=== PATIENT | female | born 1935 | race Caucasian/White ===

== ENCOUNTER 2017-03-10 13:51 | Inpatient (IN) ==
[2017-03-10] MEDS ORDERED: *HR* OxyCODONE Immed Rel 5 MG TABLET PO PRN (14:44)
[2017-03-10] MEDS: Gabapentin 100 MG CAPSULE PO SCH ×2 (15:32→20:16)
[2017-03-11 06:32] LABS: Basophils % 0.5 %; Eosinophils # 0.2 K/mcL (0.0-0.6); Eosinophils % 4.1 %; Hematocrit 27.4 % (35.3-44.9); Hemoglobin 8.8 g/dL (11.5-15.4); Immature Granulocytes % 0.9 % (0-4); Lymphocytes # 1.2 K/mcL (0.6-4.6); Mean Corpuscular HGB Conc 32.1 g/dL (31.6-35.5); Mean Corpuscular Hemoglobin 32.1 pg (28.0-33.3); Mean Platelet Volume 10.3 fL (9.4-12.4); Monocytes # 0.4 K/mcL (0.0-1.3); Monocytes % 7.3 %; Neutrophils # 3.7 K/mcL (1.6-8.9); Platelet Count 205 K/mcL (140-400); Red Blood Count 2.74 M/mcL (3.82-4.97); Red Cell Distribution Width 14.7 % (11.5-14.5); Segmented Neutrophils % 65.2 %
[2017-03-11 06:38] LABS: Activated Partial Thrombo Time 33.3 Seconds (26.0-36.0)
[2017-03-11] MEDS: *HR* Enoxaparin 30 MG/0.3 ML SYRINGE SQ SCH (06:40)
[2017-03-11 07:20] LABS: Prothrombin Time 11.2 Seconds (9.4-12.1)
[2017-03-11] MEDS: *HR* Digoxin 0.125 MG TABLET PO SCH (08:54)
[2017-03-11] MEDS: Metoprolol XL (24 HR) Succ 50 MG TAB.ER.24H PO SCH (08:54)
[2017-03-11] MEDS: Aspirin Enteric Coated 81 MG Tablet PO SCH (08:54)
[2017-03-11] MEDS: Isosorbide MONOnitrate (24 HR) 30 MG TAB.ER.24H PO SCH (08:54)
[2017-03-11] MEDS: Cholecalciferol (D-3) 1,000 UNIT TABLET PO SCH (08:54)
[2017-03-11] MEDS: Bumetanide 1 MG TABLET PO SCH (08:55)
[2017-03-11] MEDS: Gabapentin 100 MG CAPSULE PO SCH ×3 (08:55→21:36)
[2017-03-11] MEDS ORDERED: (Cranberry Conc/C/Bacill Coag [Cranberry Tablet]) PO SCH (09:00)
--- NOTE | 2017-03-11 10:13 | Internal Med Progress Note ---
Date of Encounter: 03/11/17 Time of Encounter: 10:05 - Assessment and plan (1) Fracture of left pelvis Current Visit: No Status: Acute Assessment and plan: March 11. We will discontinue Duragesic patch and continue oral medication when necessary. Continue PT and OT interventions. Qualifiers: Encounter type: initial encounter Pelvic bone location: pubis Fracture type: closed Fracture alignment: displaced Qualified Code(s): S32.502A - Unspecified fracture of left pubis, initial encounter for closed fracture (2) Anemia Current Visit: No Status: Chronic Assessment and plan: March 11. Probably due to chronic kidney disease. Will monitor CBC periodically. Anemia testing July and February 2017 showed no factor deficiency. Qualifiers: Anemia type: unspecified type Qualified Code(s): D64.9 - Anemia, unspecified (3) CKD (chronic kidney disease) stage 4, GFR 15-29 ml/min Current Visit: No Status: Chronic Assessment and plan: March 11. Will monitor renal indices periodically. (4) DM type 2 (diabetes mellitus, type 2) Current Visit: No Status: Chronic Assessment and plan: March 11. Hemoglobin A1c was 5.6% on 01/22/2017. Remain off oral medication. Qualifiers: Diabetes mellitus complication status: with kidney complications Diabetes mellitus complication detail: with chronic kidney disease Diabetes mellitus long term care administrator insulin use: without half-way use Chronic kidney disease stage: stage 4 (severe) Qualified Code(s): E11.22 - Type 2 diabetes mellitus with diabetic chronic kidney disease; N18.4 - Chronic kidney disease, stage 4 (severe ) (5) Hypothyroidism Current Visit: No Status: Chronic Assessment and plan: March 11. TSH was normal at 0.886 on 02/11/2017. Continue present dose Synthroid Qualifiers: Hypothyroidism type: unspecified Qualified Code(s): E03.9 - Hypothyroidism , unspecified - Subjective Interval history: March 11. She was in acute care March 03 - March 10 after sustaining a fall at home approximately 6 days earlier resulting in nondisplaced left inferior pubic ramus fracture. She progressed well in therapy and was approved for swing bed stay on March 10 to continue rehabilitation therapy prior to returning to independent living at home. Oral diabetic medication was discontinued and blood sugars were monitored and satisfactory. She complains of nausea today but has no new complaints otherwise. - Constitutional Vitals: Temp Pulse Resp BP Pulse Ox 98.6 F 60 16 164/72 93 03/11/17 07:08 03/11/17 07:08 03/11/17 07:08 03/11/17 07:08 03/11/17 07:08 Exam: She is resting comfortably in bed and appears in no acute distress. Her affect is bright and cheerful. Her extremities show 1+ pitting edema as well as some woody edema. She has healing ulcerative areas on her legs as before. I reviewed her medications and lab results. Internal Medicine: Result - Labs CBC & Chem 7: 03/11/17 06:10 03/11/17 06:10 Labs: Short CBC 03/11/17 Range/Units 06:10 WBC 5.6 (4.3-11.1) K/mcL Hgb 8.8 L (11.5-15.4) g/dL Hct 27.4 L (35.3-44.9) % Plt Count 205 (140-400) K/mcL Neutrophils # 3.7 (1.6-8.9) K/mcL BMP 03/11/17 06:10 Creatinine 2.31 H - ABG Interpretation ABG results: PT/INR, D-dimer PT 11.2 Seconds (9.4-12.1) 03/11/17 06:10 Consult Discharge Plan - Plan Referrals: Macy Reed MD [Primary Care Provider] - 1 week
[2017-03-11] MEDS: Ondansetron ODT 4 MG TAB.RAPDIS SL PRN (11:12)
[2017-03-11] MEDS ORDERED: Simethicone 80 MG TAB.CHEW PO PRN (18:53)
[2017-03-11] MEDS ORDERED: Simethicone 80 MG TAB.CHEW PO SCH (21:00)
[2017-03-12] MEDS: *HR* Enoxaparin 30 MG/0.3 ML SYRINGE SQ SCH (06:04)
[2017-03-12] MEDS: Aspirin Enteric Coated 81 MG Tablet PO SCH (08:28)
[2017-03-12] MEDS: Bumetanide 1 MG TABLET PO SCH (08:28)
[2017-03-12] MEDS: Gabapentin 100 MG CAPSULE PO SCH ×3 (08:29→20:58)
[2017-03-12] MEDS: Isosorbide MONOnitrate (24 HR) 30 MG TAB.ER.24H PO SCH (08:29)
[2017-03-12] MEDS: Cholecalciferol (D-3) 1,000 UNIT TABLET PO SCH (08:30)
[2017-03-12] MEDS: Metoprolol XL (24 HR) Succ 50 MG TAB.ER.24H PO SCH ×2 (08:30→09:45)
[2017-03-12] MEDS: MOM Conc 10 ML UD.LIQ PO SCH (11:26)
[2017-03-13] MEDS: *HR* Enoxaparin 30 MG/0.3 ML SYRINGE SQ SCH (07:31)
[2017-03-13] MEDS ORDERED: *HR* FentaNYL PATCH 12 MCG PATCH TD SCH (09:00)
[2017-03-13] MEDS: Isosorbide MONOnitrate (24 HR) 30 MG TAB.ER.24H PO SCH (09:27)
[2017-03-13] MEDS: Cholecalciferol (D-3) 1,000 UNIT TABLET PO SCH (09:27)
[2017-03-13] MEDS: Metoprolol XL (24 HR) Succ 50 MG TAB.ER.24H PO SCH (09:27)
[2017-03-13] MEDS: Gabapentin 100 MG CAPSULE PO SCH ×3 (09:27→20:52)
[2017-03-13] MEDS: Aspirin Enteric Coated 81 MG Tablet PO SCH (09:28)
[2017-03-13] MEDS: *HR* Digoxin 0.125 MG TABLET PO SCH (09:28)
[2017-03-13] MEDS: Bumetanide 1 MG TABLET PO SCH (09:28)
[2017-03-14] MEDS: *HR* Enoxaparin 30 MG/0.3 ML SYRINGE SQ SCH (06:30)
[2017-03-14] MEDS: Bumetanide 1 MG TABLET PO SCH (10:20)
[2017-03-14] MEDS: MOM Conc 10 ML UD.LIQ PO SCH (10:20)
[2017-03-14] MEDS: Gabapentin 100 MG CAPSULE PO SCH ×3 (10:21→21:14)
[2017-03-14] MEDS: Aspirin Enteric Coated 81 MG Tablet PO SCH (10:21)
[2017-03-14] MEDS: Isosorbide MONOnitrate (24 HR) 30 MG TAB.ER.24H PO SCH (10:21)
[2017-03-14] MEDS: Metoprolol XL (24 HR) Succ 50 MG TAB.ER.24H PO SCH (10:22)
[2017-03-14] MEDS: Cholecalciferol (D-3) 1,000 UNIT TABLET PO SCH (10:22)
--- NOTE | 2017-03-14 10:39 | Internal Med Progress Note ---
Date of Encounter: 03/14/17 Time of Encounter: 10:30 - Assessment and plan (1) Fracture of left pelvis Current Visit: No Status: Acute Assessment and plan: March 11. We will discontinue Duragesic patch and continue oral medication when necessary. Continue PT and OT interventions. March 14. Remain off Duragesic patch. Continue therapy interventions. Anticipate discharge home March 19. Qualifiers: Encounter type: initial encounter Pelvic bone location: pubis Fracture type: closed Fracture alignment: displaced Qualified Code(s): S32.502A - Unspecified fracture of left pubis, initial encounter for closed fracture (2) Anemia Current Visit: No Status: Chronic Assessment and plan: March 11. Probably due to chronic kidney disease. Will monitor CBC periodically. Anemia testing July and February 2017 showed no factor deficiency. Qualifiers: Anemia type: unspecified type Qualified Code(s): D64.9 - Anemia, unspecified (3) CKD (chronic kidney disease) stage 4, GFR 15-29 ml/min Current Visit: No Status: Chronic Assessment and plan: March 11. Will monitor renal indices periodically. (4) DM type 2 (diabetes mellitus, type 2) Current Visit: No Status: Chronic Assessment and plan: March 11. Hemoglobin A1c was 5.6% on 01/22/2017. Remain off oral medication. Qualifiers: Diabetes mellitus complication status: with kidney complications Diabetes mellitus complication detail: with chronic kidney disease Diabetes mellitus group home insulin use: without group home use Chronic kidney disease stage: stage 4 (severe) Qualified Code(s): E11.22 - Type 2 diabetes mellitus with diabetic chronic kidney disease; N18.4 - Chronic kidney disease, stage 4 (severe ) (5) Hypothyroidism Current Visit: No Status: Chronic Assessment and plan: March 11. TSH was normal at 0.886 on 02/11/2017. Continue present dose Synthroid Qualifiers: Hypothyroidism type: unspecified Qualified Code(s): E03.9 - Hypothyroidism , unspecified - Subjective Interval history: March 11. She was in acute care March 03 - March 10 after sustaining a fall at home approximately 6 days earlier resulting in nondisplaced left inferior pubic ramus fracture. She progressed well in therapy and was approved for swing bed stay on March 10 to continue rehabilitation therapy prior to returning to independent living at home. Oral diabetic medication was discontinued and blood sugars were monitored and satisfactory. She complains of nausea today but has no new complaints otherwise. March 14. She has no new complaints and feels well. Her pain has lessened. - Constitutional Vitals: Temp Pulse Resp BP Pulse Ox 97.4 F L 56 18 140/88 92 03/14/17 07:27 03/14/17 07:27 03/14/17 07:27 03/14/17 07:27 03/14/17 07:27 Exam: She is resting comfortably in bed and appears in no acute distress. Her affect is bright and cheerful. I reviewed her medications and lab results. Internal Medicine: Result - Labs CBC & Chem 7: 03/11/17 06:10 03/11/17 06:10 - ABG Interpretation ABG results: PT/INR, D-dimer PT 11.2 Seconds (9.4-12.1) 03/11/17 06:10 Consult Discharge Plan - Plan Referrals: Macy Reed MD [Primary Care Provider] - 1 week
[2017-03-15] MEDS: *HR* Enoxaparin 30 MG/0.3 ML SYRINGE SQ SCH (05:36)
[2017-03-15] MEDS: Bumetanide 1 MG TABLET PO SCH (10:11)
[2017-03-15] MEDS: Cholecalciferol (D-3) 1,000 UNIT TABLET PO SCH (10:12)
[2017-03-15] MEDS: Gabapentin 100 MG CAPSULE PO SCH ×3 (10:12→20:06)
[2017-03-15] MEDS: *HR* Digoxin 0.125 MG TABLET PO SCH (10:12)
[2017-03-15] MEDS: Aspirin Enteric Coated 81 MG Tablet PO SCH (10:12)
[2017-03-15] MEDS: Isosorbide MONOnitrate (24 HR) 30 MG TAB.ER.24H PO SCH (10:12)
[2017-03-15] MEDS: Metoprolol XL (24 HR) Succ 50 MG TAB.ER.24H PO SCH (10:12)
[2017-03-16] MEDS: *HR* Enoxaparin 30 MG/0.3 ML SYRINGE SQ SCH (06:34)
[2017-03-16] MEDS: Bumetanide 1 MG TABLET PO SCH (09:21)
[2017-03-16] MEDS: Aspirin Enteric Coated 81 MG Tablet PO SCH (09:21)
[2017-03-16] MEDS: Isosorbide MONOnitrate (24 HR) 30 MG TAB.ER.24H PO SCH (09:22)
[2017-03-16] MEDS: Metoprolol XL (24 HR) Succ 50 MG TAB.ER.24H PO SCH (09:22)
[2017-03-16] MEDS: Gabapentin 100 MG CAPSULE PO SCH ×3 (09:22→21:32)
[2017-03-16] MEDS: MOM Conc 10 ML UD.LIQ PO SCH (09:23)
[2017-03-16] MEDS: Cholecalciferol (D-3) 1,000 UNIT TABLET PO SCH (09:23)
[2017-03-16] MEDS: Ondansetron ODT 4 MG TAB.RAPDIS SL PRN (11:09)
--- NOTE | 2017-03-16 12:34 | Internal Med Progress Note ---
Date of Encounter: 03/16/17 Time of Encounter: 12:25 - Assessment and plan (1) Fracture of left pelvis Current Visit: No Status: Acute Assessment and plan: March 11. We will discontinue Duragesic patch and continue oral medication when necessary. Continue PT and OT interventions. March 14. Remain off Duragesic patch. Continue therapy interventions. Anticipate discharge home March 19. Qualifiers: Encounter type: initial encounter Pelvic bone location: pubis Fracture type: closed Fracture alignment: displaced Qualified Code(s): S32.502A - Unspecified fracture of left pubis, initial encounter for closed fracture (2) Anemia Current Visit: No Status: Chronic Assessment and plan: March 11. Probably due to chronic kidney disease. Will monitor CBC periodically. Anemia testing July and February 2017 showed no factor deficiency. March 16. We will recheck labs in a.m. Qualifiers: Anemia type: unspecified type Qualified Code(s): D64.9 - Anemia, unspecified (3) CKD (chronic kidney disease) stage 4, GFR 15-29 ml/min Current Visit: No Status: Chronic Assessment and plan: March 11. Will monitor renal indices periodically. March 16. We will recheck labs in a.m. (4) DM type 2 (diabetes mellitus, type 2) Current Visit: No Status: Chronic Assessment and plan: March 11. Hemoglobin A1c was 5.6% on 01/22/2017. Remain off oral medication. Qualifiers: Diabetes mellitus complication status: with kidney complications Diabetes mellitus complication detail: with chronic kidney disease Diabetes mellitus vermin exterminator insulin use: without vermin exterminator use Chronic kidney disease stage: stage 4 (severe) Qualified Code(s): E11.22 - Type 2 diabetes mellitus with diabetic chronic kidney disease; N18.4 - Chronic kidney disease, stage 4 (severe ) (5) Hypothyroidism Current Visit: No Status: Chronic Assessment and plan: March 11. TSH was normal at 0.886 on 02/11/2017. Continue present dose Synthroid Qualifiers: Hypothyroidism type: unspecified Qualified Code(s): E03.9 - Hypothyroidism , unspecified - Subjective Interval history: March 11. She was in acute care March 03 - March 10 after sustaining a fall at home approximately 6 days earlier resulting in nondisplaced left inferior pubic ramus fracture. She progressed well in therapy and was approved for swing bed stay on March 10 to continue rehabilitation therapy prior to returning to independent living at home. Oral diabetic medication was discontinued and blood sugars were monitored and satisfactory. She complains of nausea today but has no new complaints otherwise. March 14. She has no new complaints and feels well. Her pain has lessened. March 16. She has no new complaints. - Constitutional Vitals: Temp Pulse Resp BP Pulse Ox 98.0 F 58 18 168/60 93 03/16/17 07:09 03/16/17 10:08 03/16/17 10:08 03/16/17 10:08 03/16/17 10:08 Exam: She is resting comfortably in bed. Her affect is bright and cheerful. She has trace pitting edema at most on her lower legs. I reviewed her medications and lab results.. Internal Medicine: Result - Labs CBC & Chem 7: 03/11/17 06:10 03/11/17 06:10 - ABG Interpretation ABG results: PT/INR, D-dimer PT 11.2 Seconds (9.4-12.1) 03/11/17 06:10 Consult Discharge Plan - Plan Referrals: Macy Reed MD [Primary Care Provider] - 1 week
[2017-03-17 05:41] LABS: Basophils % 0.5 %; Eosinophils # 0.3 K/mcL (0.0-0.6); Eosinophils % 5.2 %; Hematocrit 30.4 % (35.3-44.9); Hemoglobin 9.6 g/dL (11.5-15.4); Immature Granulocytes % 0.9 % (0-4); Lymphocytes # 1.5 K/mcL (0.6-4.6); Lymphocytes % 27.1 %; Mean Corpuscular HGB Conc 31.6 g/dL (31.6-35.5); Mean Corpuscular Hemoglobin 31.6 pg (28.0-33.3); Mean Platelet Volume 11.1 fL (9.4-12.4); Monocytes # 0.4 K/mcL (0.0-1.3); Monocytes % 7.9 %; Neutrophils # 3.3 K/mcL (1.6-8.9); Platelet Count 222 K/mcL (140-400); Red Blood Count 3.04 M/mcL (3.82-4.97); Red Cell Distribution Width 14.9 % (11.5-14.5); Segmented Neutrophils % 58.4 %
[2017-03-17 05:59] LABS: Magnesium 2.5 mg/dL (1.6-2.6); Potassium 4.5 mEq/L (3.5-4.5)
[2017-03-17 06:08] LABS: Digoxin 0.5 ng/mL (0.8-2.0)
[2017-03-17] MEDS: *HR* Enoxaparin 30 MG/0.3 ML SYRINGE SQ SCH (06:21)
[2017-03-17] MEDS: Aspirin Enteric Coated 81 MG Tablet PO SCH (09:37)
[2017-03-17] MEDS: Bumetanide 1 MG TABLET PO SCH (09:37)
[2017-03-17] MEDS: Gabapentin 100 MG CAPSULE PO SCH ×3 (09:38→20:23)
[2017-03-17] MEDS: Isosorbide MONOnitrate (24 HR) 30 MG TAB.ER.24H PO SCH (09:38)
[2017-03-17] MEDS: Cholecalciferol (D-3) 1,000 UNIT TABLET PO SCH (09:39)
[2017-03-17] MEDS: *HR* Digoxin 0.125 MG TABLET PO SCH ×2 (09:40→10:39)
[2017-03-17] MEDS: Metoprolol XL (24 HR) Succ 50 MG TAB.ER.24H PO SCH (09:49)
[2017-03-18] MEDS: *HR* Enoxaparin 30 MG/0.3 ML SYRINGE SQ SCH ×2 (06:38→08:51)
[2017-03-18] MEDS: MOM Conc 10 ML UD.LIQ PO SCH (08:52)
[2017-03-18] MEDS: Isosorbide MONOnitrate (24 HR) 30 MG TAB.ER.24H PO SCH (08:52)
[2017-03-18] MEDS: Bumetanide 1 MG TABLET PO SCH (08:52)
[2017-03-18] MEDS: Gabapentin 100 MG CAPSULE PO SCH ×3 (08:53→22:07)
[2017-03-18] MEDS: Cholecalciferol (D-3) 1,000 UNIT TABLET PO SCH (08:53)
[2017-03-18] MEDS: Metoprolol XL (24 HR) Succ 50 MG TAB.ER.24H PO SCH (08:53)
[2017-03-19] MEDS: *HR* Enoxaparin 30 MG/0.3 ML SYRINGE SQ SCH (06:26)
[2017-03-19] MEDS: Metoprolol XL (24 HR) Succ 50 MG TAB.ER.24H PO SCH (07:05)
[2017-03-19] MEDS: Isosorbide MONOnitrate (24 HR) 30 MG TAB.ER.24H PO SCH (07:55)
[2017-03-19] MEDS: Bumetanide 1 MG TABLET PO SCH (07:55)
[2017-03-19] MEDS: *HR* Digoxin 0.125 MG TABLET PO SCH (07:55)
[2017-03-19] MEDS: Cholecalciferol (D-3) 1,000 UNIT TABLET PO SCH (07:56)
[2017-03-19] MEDS: Gabapentin 100 MG CAPSULE PO SCH ×3 (07:56→20:07)
--- NOTE | 2017-03-19 10:19 | Internal Med Progress Note ---
Date of Encounter: 03/19/17 Time of Encounter: 10:10 - Assessment and plan (1) Fracture of left pelvis Current Visit: No Status: Acute Assessment and plan: March 11. We will discontinue Duragesic patch and continue oral medication when necessary. Continue PT and OT interventions. March 14. Remain off Duragesic patch. Continue therapy interventions. Anticipate discharge home March 19. March 19. Continue present intervention. She will be discharged March 22. Qualifiers: Encounter type: initial encounter Pelvic bone location: pubis Fracture type: closed Fracture alignment: displaced Qualified Code(s): S32.502A - Unspecified fracture of left pubis, initial encounter for closed fracture (2) Anemia Current Visit: No Status: Chronic Assessment and plan: March 11. Probably due to chronic kidney disease. Will monitor CBC periodically. Anemia testing July and February 2017 showed no factor deficiency. March 16. We will recheck labs in a.m. March 19. Stable Qualifiers: Anemia type: unspecified type Qualified Code(s): D64.9 - Anemia, unspecified (3) CKD (chronic kidney disease) stage 4, GFR 15-29 ml/min Current Visit: No Status: Chronic Assessment and plan: March 11. Will monitor renal indices periodically. March 16. We will recheck labs in a.m. March 19. Stable (4) DM type 2 (diabetes mellitus, type 2) Current Visit: No Status: Chronic Assessment and plan: March 11. Hemoglobin A1c was 5.6% on 01/22/2017. Remain off oral medication. Qualifiers: Diabetes mellitus complication status: with kidney complications Diabetes mellitus complication detail: with chronic kidney disease Diabetes mellitus skilled nursing insulin use: without skilled nursing use Chronic kidney disease stage: stage 4 (severe) Qualified Code(s): E11.22 - Type 2 diabetes mellitus with diabetic chronic kidney disease; N18.4 - Chronic kidney disease, stage 4 (severe ) (5) Hypothyroidism Current Visit: No Status: Chronic Assessment and plan: March 11. TSH was normal at 0.886 on 02/11/2017. Continue present dose Synthroid Qualifiers: Hypothyroidism type: unspecified Qualified Code(s): E03.9 - Hypothyroidism , unspecified (6) Hypertension Current Visit: Yes Status: Chronic Assessment and plan: March 19. Continue metoprolol and Bumex. Will add doxazosin. Qualifiers: Hypertension type: essential hypertension Qualified Code(s): I10 - Essential (primary) hypertension - Subjective Interval history: March 11. She was in acute care March 03 - March 10 after sustaining a fall at home approximately 6 days earlier resulting in nondisplaced left inferior pubic ramus fracture. She progressed well in therapy and was approved for swing bed stay on March 10 to continue rehabilitation therapy prior to returning to independent living at home. Oral diabetic medication was discontinued and blood sugars were monitored and satisfactory. She complains of nausea today but has no new complaints otherwise. March 14. She has no new complaints and feels well. Her pain has lessened. March 16. She has no new complaints. March 19. She states she is constipated. She has no significant pelvic pain now - Constitutional Vitals: Temp Pulse Resp BP Pulse Ox 98.3 F 60 16 158/66 92 03/19/17 06:40 03/19/17 08:10 03/19/17 06:40 03/19/17 08:10 03/19/17 08:10 Exam: She is resting comfortably in a chair at bedside. Her affect is bright and cheerful. I reviewed her medications and lab results. Internal Medicine: Result - Labs CBC & Chem 7: 03/17/17 04:53 03/17/17 04:53 - ABG Interpretation ABG results: PT/INR, D-dimer PT 11.2 Seconds (9.4-12.1) 03/11/17 06:10 Consult Discharge Plan - Plan Referrals: Macy Reed MD [Primary Care Provider] - 1 week
[2017-03-19] MEDS: MOM Conc 10 ML UD.LIQ PO SCH (12:59)
[2017-03-20] MEDS: *HR* Enoxaparin 30 MG/0.3 ML SYRINGE SQ SCH (05:14)
[2017-03-20] MEDS: Isosorbide MONOnitrate (24 HR) 30 MG TAB.ER.24H PO SCH (09:56)
[2017-03-20] MEDS: Cholecalciferol (D-3) 1,000 UNIT TABLET PO SCH (09:57)
[2017-03-20] MEDS: Gabapentin 100 MG CAPSULE PO SCH ×3 (09:57→20:12)
[2017-03-20] MEDS: Bumetanide 1 MG TABLET PO SCH (09:57)
[2017-03-20] MEDS: Metoprolol XL (24 HR) Succ 50 MG TAB.ER.24H PO SCH (10:00)
[2017-03-20] MEDS ORDERED: Ammonium Lactate 30 APPL/225 GM BOTTLE TP SCH (15:30)
[2017-03-20] MEDS: Ammonium Lactate 30 APPL/225 GM BOTTLE TP SCH (15:41)
[2017-03-21] MEDS: *HR* Enoxaparin 30 MG/0.3 ML SYRINGE SQ SCH (06:29)
[2017-03-21] MEDS: Cholecalciferol (D-3) 1,000 UNIT TABLET PO SCH (09:55)
[2017-03-21] MEDS: Gabapentin 100 MG CAPSULE PO SCH ×3 (09:55→22:06)
[2017-03-21] MEDS: Isosorbide MONOnitrate (24 HR) 30 MG TAB.ER.24H PO SCH (09:55)
[2017-03-21] MEDS: Metoprolol XL (24 HR) Succ 50 MG TAB.ER.24H PO SCH (09:55)
[2017-03-21] MEDS: Bumetanide 1 MG TABLET PO SCH (09:56)
[2017-03-21] MEDS: *HR* Digoxin 0.125 MG TABLET PO SCH (09:56)
[2017-03-21] MEDS: MOM Conc 10 ML UD.LIQ PO SCH (09:58)
[2017-03-21] MEDS: Ammonium Lactate 30 APPL/225 GM BOTTLE TP SCH (11:45)
--- NOTE | 2017-03-21 17:58 | Internal Med Progress Note ---
Date of Encounter: 03/21/17 Time of Encounter: 17:50 - Assessment and plan (1) Fracture of left pelvis Current Visit: No Status: Acute Assessment and plan: March 11. We will discontinue Duragesic patch and continue oral medication when necessary. Continue PT and OT interventions. March 14. Remain off Duragesic patch. Continue therapy interventions. Anticipate discharge home March 19. March 19. Continue present intervention. She will be discharged March 22. March 21. Continue present interventions with anticipated discharge March 24. Qualifiers: Encounter type: initial encounter Pelvic bone location: pubis Fracture type: closed Fracture alignment: displaced Qualified Code(s): S32.502A - Unspecified fracture of left pubis, initial encounter for closed fracture (2) Anemia Current Visit: No Status: Chronic Assessment and plan: March 11. Probably due to chronic kidney disease. Will monitor CBC periodically. Anemia testing July and February 2017 showed no factor deficiency. March 16. We will recheck labs in a.m. March 19. Stable Qualifiers: Anemia type: unspecified type Qualified Code(s): D64.9 - Anemia, unspecified (3) CKD (chronic kidney disease) stage 4, GFR 15-29 ml/min Current Visit: No Status: Chronic Assessment and plan: March 11. Will monitor renal indices periodically. March 16. We will recheck labs in a.m. March 19. Stable (4) DM type 2 (diabetes mellitus, type 2) Current Visit: No Status: Chronic Qualifiers: Diabetes mellitus complication status: with kidney complications Diabetes mellitus complication detail: with chronic kidney disease Diabetes mellitus fci insulin use: without watermelon harvesting supervisor use Chronic kidney disease stage: stage 4 (severe) Qualified Code(s): E11.22 - Type 2 diabetes mellitus with diabetic chronic kidney disease; N18.4 - Chronic kidney disease, stage 4 (severe ) (5) Hypothyroidism Current Visit: No Status: Chronic Assessment and plan: March 11. TSH was normal at 0.886 on 02/11/2017. Continue present dose Synthroid Qualifiers: Hypothyroidism type: unspecified Qualified Code(s): E03.9 - Hypothyroidism , unspecified (6) Hypertension Current Visit: Yes Status: Chronic Assessment and plan: March 19. Continue metoprolol and Bumex. Will add doxazosin. March 21. Blood pressures are still suboptimally controlled. We will increase doxazosin. Qualifiers: Hypertension type: essential hypertension Qualified Code(s): I10 - Essential (primary) hypertension - Subjective Interval history: March 11. She was in acute care March 03 - March 10 after sustaining a fall at home approximately 6 days earlier resulting in nondisplaced left inferior pubic ramus fracture. She progressed well in therapy and was approved for swing bed stay on March 10 to continue rehabilitation therapy prior to returning to independent living at home. Oral diabetic medication was discontinued and blood sugars were monitored and satisfactory. She complains of nausea today but has no new complaints otherwise. March 14. She has no new complaints and feels well. Her pain has lessened. March 16. She has no new complaints. March 19. She states she is constipated. She has no significant pelvic pain now March 21. She has no complaints. She is scheduled to see urologist tomorrow about removal of the temporary bladder stimulator. Her son expressed concern about her being discharged tomorrow. Therapy agreed she could remain until March 24 since further progress is likely in rehabilitation. - Constitutional Vitals: Temp Pulse Resp BP Pulse Ox 98.4 F 65 18 169/72 95 03/21/17 07:04 03/21/17 07:04 03/21/17 07:04 03/21/17 07:04 03/21/17 07:04 Exam: She is resting comfortably in her chair at bedside watching TV. Her affect is bright and cheerful. Her edema on the dorsum of the feet is still 1-2+. I reviewed her medications and lab results. Internal Medicine: Result - Labs CBC & Chem 7: 03/17/17 04:53 03/17/17 04:53 - ABG Interpretation ABG results: PT/INR, D-dimer PT 11.2 Seconds (9.4-12.1) 03/11/17 06:10 Consult Discharge Plan - Plan Referrals: Macy eRed MD [Primary Care Provider] - 1 week
[2017-03-22] MEDS: *HR* Enoxaparin 30 MG/0.3 ML SYRINGE SQ SCH (05:28)
[2017-03-22] MEDS: Gabapentin 100 MG CAPSULE PO SCH ×3 (08:04→20:56)
[2017-03-22] MEDS: Cholecalciferol (D-3) 1,000 UNIT TABLET PO SCH (08:04)
[2017-03-22] MEDS: Metoprolol XL (24 HR) Succ 50 MG TAB.ER.24H PO SCH (08:05)
[2017-03-22] MEDS: Bumetanide 1 MG TABLET PO SCH (08:05)
[2017-03-22] MEDS: Isosorbide MONOnitrate (24 HR) 30 MG TAB.ER.24H PO SCH (08:05)
[2017-03-22] MEDS: Ammonium Lactate 30 APPL/225 GM BOTTLE TP SCH (09:42)
[2017-03-23] MEDS: *HR* Enoxaparin 30 MG/0.3 ML SYRINGE SQ SCH (06:36)
[2017-03-23] MEDS: Isosorbide MONOnitrate (24 HR) 30 MG TAB.ER.24H PO SCH (08:38)
[2017-03-23] MEDS: Bumetanide 1 MG TABLET PO SCH (08:38)
[2017-03-23] MEDS: Ammonium Lactate 30 APPL/225 GM BOTTLE TP SCH (08:39)
[2017-03-23] MEDS: Gabapentin 100 MG CAPSULE PO SCH ×3 (08:39→21:30)
[2017-03-23] MEDS: Cholecalciferol (D-3) 1,000 UNIT TABLET PO SCH (08:39)
[2017-03-23] MEDS: Metoprolol XL (24 HR) Succ 50 MG TAB.ER.24H PO SCH (08:39)
[2017-03-23] MEDS: *HR* Digoxin 0.125 MG TABLET PO SCH (08:39)
[2017-03-23] MEDS: MOM Conc 10 ML UD.LIQ PO SCH (12:08)
[2017-03-24] MEDS: *HR* Enoxaparin 30 MG/0.3 ML SYRINGE SQ SCH (07:42)
[2017-03-24] MEDS: Bumetanide 1 MG TABLET PO SCH (07:42)
[2017-03-24] MEDS: Cholecalciferol (D-3) 1,000 UNIT TABLET PO SCH (07:42)
[2017-03-24] MEDS: Gabapentin 100 MG CAPSULE PO SCH ×2 (07:43→14:12)
[2017-03-24] MEDS: Isosorbide MONOnitrate (24 HR) 30 MG TAB.ER.24H PO SCH (07:43)
[2017-03-24] MEDS: Aspirin Enteric Coated 81 MG Tablet PO SCH (07:43)
[2017-03-24] MEDS: Metoprolol XL (24 HR) Succ 50 MG TAB.ER.24H PO SCH (07:43)
[2017-03-24] MEDS: Ammonium Lactate 30 APPL/225 GM BOTTLE TP SCH (07:48)
--- NOTE | 2017-03-24 10:30 | Discharge Summary ---
Date of Encounter: 03/24/17 Time of Encounter: 10:15 - Discharge Diagnosis (1) Fracture of left pelvis Priority: Primary Status: Acute Qualifiers: Encounter type: initial encounter Pelvic bone location: pubis Fracture type: closed Fracture alignment: displaced Qualified Code(s): S32.502A - Unspecified fracture of left pubis, initial encounter for closed fracture (2) Anemia Priority: Secondary Status: Chronic Qualifiers: Anemia type: unspecified type Qualified Code(s): D64.9 - Anemia, unspecified (3) CKD (chronic kidney disease) stage 4, GFR 15-29 ml/min Priority: Secondary Status: Chronic (4) DM type 2 (diabetes mellitus, type 2) Priority: Secondary Status: Chronic Qualifiers: Diabetes mellitus complication status: with kidney complications Diabetes mellitus complication detail: with chronic kidney disease Diabetes mellitus jail insulin use: without salvage determiner use Chronic kidney disease stage: stage 4 (severe) Qualified Code(s): E11.22 - Type 2 diabetes mellitus with diabetic chronic kidney disease; N18.4 - Chronic kidney disease, stage 4 (severe ) (5) Hypothyroidism Priority: Secondary Status: Chronic Qualifiers: Hypothyroidism type: unspecified Qualified Code(s): E03.9 - Hypothyroidism , unspecified (6) Hypertension Priority: Secondary Status: Chronic Qualifiers: Hypertension type: essential hypertension Qualified Code(s): I10 - Essential (primary) hypertension - Discharge Medications Prescriptions: Bumetanide [Bumex] 0.5 mg PO DAILY #15 tab Digoxin [Lanoxin] 0.125 mg PO QOD #15 tab Doxazosin [Cardura] 8 mg PO HS #60 tablet Isosorbide MONOnitrate (24 HR) [Imdur] 30 mg PO DAILY #30 tab.er.24h Metoprolol XL (24 HR) Succ [Toprol Xl] 50 mg PO DAILY #30 tab.er.24h Home Medications: Allopurinol 300 mg PO DAILY 03/03/17 [History] Atorvastatin Calcium 80 mg PO DAILY 03/03/17 [History] Cranberry Conc/C/Bacill Coag [Cranberry Tablet] 1 each PO DAILY 03/03/17 [ History] Gabapentin [Neurontin] 100 mg PO TID 03/03/17 [History] Omeprazole 20 mg PO DAILY 03/03/17 [History] Aspirin [Lo-Dose Aspirin EC] 81 mg PO DAILY 03/04/17 [History] Acetaminophen [Tylenol] 500 mg PO Q6HR tab 03/10/17 [Rx] Atorvastatin [Lipitor] 80 mg PO DAILY tab 03/10/17 [Rx] Cholecalciferol (D-3) [Vitamin D] 1,000 unit PO DAILY tab 03/10/17 [Rx] Naloxone [Narcan] 0.4 mg IVP Q2MIN PRN 03/10/17 [Rx] Bumetanide [Bumex] 0.5 mg PO DAILY #15 tab 03/24/17 [Rx] Digoxin [Lanoxin] 0.125 mg PO QOD #15 tab 03/24/17 [Rx] Doxazosin [Cardura] 8 mg PO HS #60 tablet 03/24/17 [Rx] Isosorbide MONOnitrate (24 HR) [Imdur] 30 mg PO DAILY #30 tab.er.24h 03/24/17 [ Rx] Metoprolol XL (24 HR) Succ [Toprol Xl] 50 mg PO DAILY #30 tab.er.24h 03/24/17 [ Rx] Allergies/Adverse Reactions: 3 Allergy/AdvReac Type Severity Reaction Status Date / Time ibuprofen [From Motrin IB] AdvReac Hives Verified 03/02/17 09:24 Sulfa (Sulfonamide AdvReac Hives Verified 03/02/17 09:24 Antibiotics) Date of admission: 03/10/17 14:56 Primary care physician: Macy Reed Consults: 03/10/17 14:31 Consult to Physical Therapy [CONS] Routine Comment: Evaluate, develop and implement POC Reason for Consult: Evaluate, develop and implement POC 03/10/17 14:33 Consult to Occupational Therapy [CONS] Routine Comment: Evaluate, develop and implement POC Reason for Consult: Evaluate, develop and implement POC - Patient Status Disposition: Home Health Service Functional capacity at discharge: uses cane/walker Overall status at discharge: patient is progressing back to baseline - Discharge Instructions Follow Up With: Macy Reed MD [Primary Care Provider] - 1 week - Diet and Activity Activity: ambulate only with your walker, resume usual activities as tolerated Diet: diabetic diet Hospital course: Ms. Allison is a 81 year old female who was in acute care March 03 - March 10 after sustaining a fall at home approximately 6 days earlier resulting in nondisplaced left inferior pubic ramus fracture. She progressed well in therapy and was approved for swing bed stay on March 10 to continue rehabilitation therapy prior to returning to independent living at home. Oral diabetic medication was discontinued and blood sugars were monitored and satisfactory. She continued in therapy with satisfactory improvement. The fentanyl patch was discontinued and pain was adequately controlled with oral agents. It was recommended by therapy she have a front wheeled walker and bedside commode for patient safety and convenience upon discharge. She was placed on Bumex, Lanoxin, and isosorbide during the acute care stay for heart failure. She had clinical improvement with good diuresis and weight decrease from 83.688 kg on March 07 to 77.61 kg at discharge. She will continue with this regimen on discharge. Blood pressures frequently were above desirable range so doxazosin was given in increasing doses. She will be discharged home on metoprolol and doxazosin and her PCP can adjust medications further as needed. On March 24 she was stable for discharge home. She will have home health services provided at discharge. She will follow with her PCP Dr. Reed within 1 week. She mentioned on the day of discharge pain in her right thorax that was possibly postherpetic neuralgia. I will let her PCP address this further. - Time Spent with Patient Total time spent providing and/or coordinating discharge services: - Constitutional Vitals: Temp Pulse Resp BP Pulse Ox 98.1 F 56 16 178/54 93 03/23/17 19:22 03/23/17 19:22 03/23/17 19:22 03/23/17 19:22 03/23/17 19:22
[2017-03-24 10:37] VITALS: BP 151/71
--- NOTE | 2017-03-24 10:53 | Physician Discharge Referral ---
Home Health/Hosp Referral Info Transfer to: Home Health Attending Provider: Isra Provider in Charge Post Discharge: PCP (Macy Reed M.D.) - Diagnosis (1) Fracture of left pelvis Priority: Primary Status: Acute (2) Anemia Priority: Secondary Status: Chronic (3) CKD (chronic kidney disease) stage 4, GFR 15-29 ml/min Priority: Secondary Status: Chronic (4) DM type 2 (diabetes mellitus, type 2) Priority: Secondary Status: Chronic (5) Hypothyroidism Priority: Secondary Status: Chronic (6) Hypertension Priority: Secondary Status: Chronic - Respiratory Orders Smoking Cessation: Smoking cessation has been advised. For more information, call the [place] Tobacco Quit Line at 6-223-GTTX-NOW. - Diet/Nutrition Diet/Nutrition Orders: No Concentrated Sweets - Activity Activity Orders: Walker - Services Needed Following services are medically necessary services: Nursing, Home Health Aide, Physical Therapy, Occupational Therapy - Transfer Medications Prescriptions: Bumetanide [Bumex] 0.5 mg PO DAILY #15 tab Digoxin [Lanoxin] 0.125 mg PO QOD #15 tab Doxazosin [Cardura] 8 mg PO HS #60 tablet Isosorbide MONOnitrate (24 HR) [Imdur] 30 mg PO DAILY #30 tab.er.24h Metoprolol XL (24 HR) Succ [Toprol Xl] 50 mg PO DAILY #30 tab.er.24h Home Medications: Allopurinol 300 mg PO DAILY 03/03/17 [History] Atorvastatin Calcium 80 mg PO DAILY 03/03/17 [History] Cranberry Conc/C/Bacill Coag [Cranberry Tablet] 1 each PO DAILY 03/03/17 [ History] Gabapentin [Neurontin] 100 mg PO TID 03/03/17 [History] Omeprazole 20 mg PO DAILY 03/03/17 [History] Aspirin [Lo-Dose Aspirin EC] 81 mg PO DAILY 03/04/17 [History] Acetaminophen [Tylenol] 500 mg PO Q6HR tab 03/10/17 [Rx] Atorvastatin [Lipitor] 80 mg PO DAILY tab 03/10/17 [Rx] Cholecalciferol (D-3) [Vitamin D] 1,000 unit PO DAILY tab 03/10/17 [Rx] Naloxone [Narcan] 0.4 mg IVP Q2MIN PRN 03/10/17 [Rx] Bumetanide [Bumex] 0.5 mg PO DAILY #15 tab 03/24/17 [Rx] Digoxin [Lanoxin] 0.125 mg PO QOD #15 tab 03/24/17 [Rx] Doxazosin [Cardura] 8 mg PO HS #60 tablet 03/24/17 [Rx] Isosorbide MONOnitrate (24 HR) [Imdur] 30 mg PO DAILY #30 tab.er.24h 03/24/17 [ Rx] Metoprolol XL (24 HR) Succ [Toprol Xl] 50 mg PO DAILY #30 tab.er.24h 03/24/17 [ Rx] Allergies/Adverse Reactions: 3 Allergy/AdvReac Type Severity Reaction Status Date / Time ibuprofen [From Motrin IB] AdvReac Hives Verified 03/02/17 09:24 Sulfa (Sulfonamide AdvReac Hives Verified 03/02/17 09:24 Antibiotics) Certification: Further, I certify that my clinical findings support that this patient is homebound (i.e. absences from home require considerable and taxing effort and are for medical reasons or muslim services or infrequently or short duration when for other reasons) because: Homebound Reason: Leaving home requires considerable and taxing effort due to condition (Pelvic fracture) Attestation: My signature below is to certify that this patient is under my care and that I, or nurse practitioner, or a physician's sociology research assistant working with me, has a face-to -face encounter with this patient.
== END 2017-03-24 14:25 | disposition home health service (06) | DRG 560 ==
LOC: INPPIK 14:56
PROVIDERS: ADMIT Internal Medicine; ATTEND Internal Medicine

== ENCOUNTER 2017-08-19 17:21 | Inpatient (IN) ==
--- NOTE | 2017-08-19 18:05 | Emergency Department Note ---
Disposition Clinical Impression: CHF (congestive heart failure) Qualifiers: Heart failure type: unspecified Heart failure chronicity: acute on chronic Qualified Code(s): I50.9 - Heart failure, unspecified Disposition: Admitted As Inpatient Condition: Fair SOB HPI - General Chief Complaint: ED Shortness of Breath/Dyspnea Stated Complaint: SHORTNESS OF BREATH Time Seen by Provider: 08/19/17 17:49 Source: patient Mode of arrival: EMS Limitations: no limitations Nursing Notes Reviewed: Yes Vital Signs Reviewed: Yes - History of Present Illness Patient presents to the ED complaining of progressively worsening shortness of breath. States it got really bad last night and is worse when she is supine versus sitting up. She reports some intermittent discomfort in the left side of her chest that willl last a few seconds. None currently. She also reports bilateral lower extremity edema that is chronic but has been worsening over the past week or 2. She denies any cough, nasal congestion or sore throat. No fever or chills. She was in the hospital last month for some abdominal pain and developed a DVT. She was on Coumadin but states it was stopped because it was too harsh and her blood levels were dropping. She was discharged to a longterm fro rehab and has only been home for 1 week with worsening of her symptoms. She is not sure if she is currently on any other blood thinner at this time. Family states that she is not on anything although they do not have a current list of her medications with them. They state that they do know that she is on Bumex and has been on Lasix in the past. History is notable for both CHF as well as asthma in addition to hypertension and hyperlipidemia and CKD. She denies any history of CAD or MN. - Related Data Home Medications Medication Instructions Recorded Confirmed Allopurinol 300 mg PO DAILY 03/03/17 08/19/17 Cranberry Conc/C/Bacill Coag 1 each PO DAILY 03/03/17 08/19/17 [Cranberry Tablet] Omeprazole 20 mg PO DAILY 03/03/17 08/19/17 Previous Rx's Medication Instructions Recorded Acetaminophen [Tylenol] 500 mg PO Q6HR tab 03/10/17 Atorvastatin [Lipitor] 80 mg PO DAILY tab 03/10/17 Cholecalciferol (D-3) [Vitamin D] 1,000 unit PO DAILY tab 03/10/17 Digoxin [Lanoxin] 0.125 mg PO QOD #15 tab 03/24/17 Doxazosin [Cardura] 8 mg PO HS #60 tablet 03/24/17 Isosorbide MONOnitrate (24 HR) 30 mg PO DAILY #30 tab.er.24h 03/24/17 [Imdur] Metoprolol XL (24 HR) Succ [Toprol 50 mg PO DAILY #30 tab.er.24h 03/24/17 Xl] MOM Conc [MILK OF MAGNESIA conc] 10 ml PO Q48H ud.liq 07/14/17 Methyl Salicylate/Menthol [Bengay] 1 appl TP BID PRN tube 07/14/17 Bumetanide [Bumex] 1 mg PO DAILY tablet 07/31/17 Gabapentin [Neurontin] 100 mg PO BID capsule 07/31/17 HYDROcodone/Acet 5/325 mg [Duvall 1 tab PO Q4HR PRN #60 tablet 07/31/17 5-325 mg] Allergies Allergy/AdvReac Type Severity Reaction Status Date / Time ibuprofen [From Motrin IB] AdvReac Hives Verified 03/02/17 09:24 Sulfa (Sulfonamide AdvReac Hives Verified 03/02/17 09:24 Antibiotics) Constitutional: Denies: fever, chills, weakness, weight change Eyes: Denies: eye pain, eye discharge, vision change ENT ED: Denies: ear pain, throat pain, dental pain, hearing loss, epistaxis, congestion, dysphagia Cardiovascular: Reports: as per HPI, chest pain, dyspnea on exertion, edema. Denies: palpitations, syncope Respiratory: Reports: dyspnea. Denies: cough, wheezes, hemoptysis, stridor, sputum production Gastrointestinal: Denies: abdominal pain, nausea, vomiting, diarrhea, constipation, hematemesis, melena, hematochezia Genitourinary: Denies: dysuria, frequency, hematuria, discharge Musculoskeletal: Denies: back pain, neck pain, arthralgia, myalgia Integumentary: Denies: rash, abrasion, lesions Neurological: Denies: headache, weakness, numbness, paresthesias, confusion, abnormal gait, vertigo Psychiatric: Denies: anxiety, depression, suicidal thoughts, homicidal thoughts , auditory hallucinations, visual hallucinations Endocrine: Denies: fatigue Hematological/Lymphatic: Denies: easy bleeding, easy bruising Allergic/Immunologic: Denies: facial swelling, urticaria Past Medical History - Past Medical History Medical history: Reports: arthritis, asthma, CHF, diabetes, GERD, hyperlipidemia , hypertension, renal disease, thyroid disease Surgical history: Reports: orthopedic, other Psychiatric history: Reports: no psych history - Social History Smoking Status: Never smoker Smokeless Tobacco Status: No Alcohol use: Reports: none Drug use: Reports: none Physical Exam - General Limitations: no limitations General appearance: alert, in no apparent distress - Head Head exam: atraumatic, normocephalic, normal inspection - Eye Eye exam: Present: normal appearance, PERRL, EOMI - ENT ENT exam: normal exam, normal oropharynx, mucous membranes moist - Neck Neck exam: Present: normal inspection, full ROM, trachea midline - Chest Chest inspection: Present: normal inspection, symmetric chest wall rise. Absent : tenderness - Respiratory Respiratory exam: Absent: respiratory distress - Expanded Respiratory Exam Location: rales: Left, Right, Lower - Cardiovascular Cardiovascular exam: Present: regular rate, normal rhythm, normal heart sounds - Abdominal Exam Abdominal exam: Present: soft, Non-Tender. Absent: tenderness, distention, guarding, rebound, rigidity - Extremities Exam Extremities exam: Present: normal inspection, full ROM, normal capillary refill , pedal edema (2+ bilaterally, symmetric). Absent: tenderness, calf tenderness - Expanded Lower Extremity Exam Lower leg exam: Present: full ROM, erythema (bilateral, no warmth). Absent: palpable cord Ankle exam: Present: normal inspection, full ROM Foot/toe exam: Present: normal inspection, full ROM Neurovascular/Tendon exam: Present: normal capillary refill. Absent: pulse deficit, motor deficit, sensory deficit, tendon deficit, extremity cold to touch - Back Exam Back exam: Present: normal inspection, full ROM. Absent: tenderness - Neurological Exam Neurological exam: Present: alert, oriented X3 - Psychiatric Psychiatric exam: Present: normal affect, normal mood - Skin Skin exam: Present: warm, dry, intact, normal color Course Course Narrative: Patient presents to the ED complaining of worsening shortness of breath, orthopnea and lower extremity swelling with a history of CHF on diuretics. She also has a history of DVT and its unclear she is currently being anticoagulated. Most recent lab work shows that she had an INR 5.4 on 08/16. Her edema is symmetric and have low suspicion for DVT but will check a d-dimer in addition to labs and chest x-ray. Given her crackles I suspect this is primarily a CHF exacerbation. EKG on arrival shows a normal sinus rhythm with first-degree block. No ischemic changes. - Reevaluation(s) Reevaluation #1: Chest x-ray shows pulmonary vascular congestion. INR is 2.6. D-dimer is 293. BNP is 246. Workup is consistent with CHF exacerbation. She will be started on Lasix. She will require admission for close monitoring given her history of COPD and need for close monitoring while she is being diuresed. Discussed with patient and family and they are in agreement. I spoke to the hospitalist solution designer, Dr. Dhaliwal, who has agreed to admit the patient. Vital Signs Temperature 98.0 F 08/19/17 17:22 Pulse Rate 80 08/19/17 17:22 Respiratory Rate 20 08/19/17 17:22 Blood Pressure 186/79 08/19/17 17:22 O2 Sat by Pulse Oximetry 94 08/19/17 17:22 Temperature 98.4 F 08/19/17 23:43 Pulse Rate 70 08/19/17 23:43 Respiratory Rate 19 08/19/17 23:43 Blood Pressure 186/74 08/19/17 23:43 O2 Sat by Pulse Oximetry 93 08/19/17 23:43 Oxygen Delivery Oxygen Delivery Nasal Cannula Shortness of Breath/Dyspnea - Differential Diagnosis Likely: acute exacerbation of chronic obstructive airways disease, congestive heart failure, pneumonia. Unlikely: pulmonary embolism, arrhythmia - Medical Records Medical records reviewed: Yes I reviewed the patient's medical records. - Lab Data Lab results reviewed: Yes I reviewed the patient's lab results. Result diagrams: 08/19/17 18:30 08/19/17 18:30 Lab Results 08/19/17 08/19/17 08/19/17 Range/Units 18:30 18:30 18:30 WBC 6.5 (4.3-11.1) K/mcL RBC 2.60 L (3.82-4.97) M/mcL Hgb 8.0 L (11.5-15.4) g/dL Hct 25.9 L (35.3-44.9) % MCV 99.6 (83.0-100.0) fL MCH 30.8 (28.0-33.3) pg MCHC 30.9 L (31.6-35.5) g/dL RDW 18.1 H (11.5-14.5) % Plt Count 219 (140-400) K/mcL MPV 10.9 (9.4-12.4) fL Immature Gran % 1.5 (0-4) % Seg Neutrophils % 73.8 % Lymphocytes % 15.2 % Monocytes % 7.4 % Eosinophils % 1.8 % Basophils % 0.3 % Neutrophils # 4.8 (1.6-8.9) K/mcL Lymphocytes # 1.0 (0.6-4.6) K/mcL Monocytes # 0.5 (0.0-1.3) K/mcL Eosinophils # 0.1 (0.0-0.6) K/mcL Basophils # 0.0 (0.0-0.2) K/mcL Nucleated RBCs/100 WBC 0.3 H (0) /100 WBC PT (9.4-12.1) Seconds INR APTT (26.0-36.0) Seconds D-Dimer (0-500) ng/mLFEU Sodium 141 (136-145) mEq/L Potassium 4.3 (3.5-5.1) mEq/L Chloride 103 (98-107) mEq/L Carbon Dioxide 29 (23-29) mEq/L BUN 24 H (8-23) mg/dL Creatinine 1.89 H (0.60-1.20) mg/dL Est GFR ( Amer) 31 L (> 60) Est GFR (Non-Af Amer) 26 L (> 60) BUN/Creatinine Ratio 13 (6-26) Glucose 93 (70-105) mg/dL Calculated Osmolality 296 (280-300) Lactic Acid (0.5-2.2) mmol/L Calcium 8.9 (8.6-10.3) mg/dL Troponin I < 0.03 (< 0.04) ng/mL B-Natriuretic Peptide (Less than 100) pg/mL 08/19/17 08/19/17 08/19/17 Range/Units 18:30 18:30 18:30 WBC (4.3-11.1) K/mcL RBC (3.82-4.97) M/mcL Hgb (11.5-15.4) g/dL Hct (35.3-44.9) % MCV (83.0-100.0) fL MCH (28.0-33.3) pg MCHC (31.6-35.5) g/dL RDW (11.5-14.5) % Plt Count (140-400) K/mcL MPV (9.4-12.4) fL Immature Gran % (0-4) % Seg Neutrophils % % Lymphocytes % % Monocytes % % Eosinophils % % Basophils % % Neutrophils # (1.6-8.9) K/mcL Lymphocytes # (0.6-4.6) K/mcL Monocytes # (0.0-1.3) K/mcL Eosinophils # (0.0-0.6) K/mcL Basophils # (0.0-0.2) K/mcL Nucleated RBCs/100 WBC (0) /100 WBC PT 28.2 H D (9.4-12.1) Seconds INR 2.6 D APTT 36.9 H (26.0-36.0) Seconds D-Dimer 293 (0-500) ng/mLFEU Sodium (136-145) mEq/L Potassium (3.5-5.1) mEq/L Chloride (98-107) mEq/L Carbon Dioxide (23-29) mEq/L BUN (8-23) mg/dL Creatinine (0.60-1.20) mg/dL Est GFR ( Amer) (> 60) Est GFR (Non-Af Amer) (> 60) BUN/Creatinine Ratio (6-26) Glucose (70-105) mg/dL Calculated Osmolality (280-300) Lactic Acid (0.5-2.2) mmol/L Calcium (8.6-10.3) mg/dL Troponin I (< 0.04) ng/mL B-Natriuretic Peptide 246 H (Less than 100) pg/mL 08/19/17 Range/Units 18:43 WBC (4.3-11.1) K/mcL RBC (3.82-4.97) M/mcL Hgb (11.5-15.4) g/dL Hct (35.3-44.9) % MCV (83.0-100.0) fL MCH (28.0-33.3) pg MCHC (31.6-35.5) g/dL RDW (11.5-14.5) % Plt Count (140-400) K/mcL MPV (9.4-12.4) fL Immature Gran % (0-4) % Seg Neutrophils % % Lymphocytes % % Monocytes % % Eosinophils % % Basophils % % Neutrophils # (1.6-8.9) K/mcL Lymphocytes # (0.6-4.6) K/mcL Monocytes # (0.0-1.3) K/mcL Eosinophils # (0.0-0.6) K/mcL Basophils # (0.0-0.2) K/mcL Nucleated RBCs/100 WBC (0) /100 WBC PT (9.4-12.1) Seconds INR APTT (26.0-36.0) Seconds D-Dimer (0-500) ng/mLFEU Sodium (136-145) mEq/L Potassium (3.5-5.1) mEq/L Chloride (98-107) mEq/L Carbon Dioxide (23-29) mEq/L BUN (8-23) mg/dL Creatinine (0.60-1.20) mg/dL Est GFR ( Amer) (> 60) Est GFR (Non-Af Amer) (> 60) BUN/Creatinine Ratio (6-26) Glucose (70-105) mg/dL Calculated Osmolality (280-300) Lactic Acid 0.7 (0.5-2.2) mmol/L Calcium (8.6-10.3) mg/dL Troponin I (< 0.04) ng/mL B-Natriuretic Peptide (Less than 100) pg/mL - Radiology Data Radiology results reviewed: Yes I reviewed the patient's radiology results. ITS Impressions Chest X-Ray 08/19/17 18:04 IMPRESSION: Findings suggestive of cardiomegaly and pulmonary venous congestion. D/ / 08/19/2017 18:28:55 Mc Montero MD / [email or web address] Interpreting Provider: Mc Montero MD - EKG Data EKG attestation: Yes I reviewed and interpreted this EKG. EKG shows normal: Reports: sinus rhythm Rate: Reports: normal Rhythm: Reports: NSR Kiester/QRS: Reports: normal Heart block present: Reports: 1st Degree
[2017-08-19 18:52] LABS: Basophils % 0.3 %; Eosinophils # 0.1 K/mcL (0.0-0.6); Eosinophils % 1.8 %; Hematocrit 25.9 % (35.3-44.9); Immature Granulocytes % 1.5 % (0-4); Lymphocytes % 15.2 %; Mean Corpuscular HGB Conc 30.9 g/dL (31.6-35.5); Mean Corpuscular Hemoglobin 30.8 pg (28.0-33.3); Mean Corpuscular Volume 99.6 fL (83.0-100.0); Mean Platelet Volume 10.9 fL (9.4-12.4); Monocytes # 0.5 K/mcL (0.0-1.3); Monocytes % 7.4 %; Neutrophils # 4.8 K/mcL (1.6-8.9); Nucleated Red Blood Cells 0.3 /100 WBC (0); Platelet Count 219 K/mcL (140-400); Red Cell Distribution Width 18.1 % (11.5-14.5); Segmented Neutrophils % 73.8 %
[2017-08-19 19:08] LABS: INR 2.6; Prothrombin Time 28.2 Seconds (9.4-12.1)
[2017-08-19 19:10] LABS: Activated Partial Thrombo Time 36.9 Seconds (26.0-36.0)
[2017-08-19 19:21] LABS: Calcium 8.9 mg/dL (8.6-10.3); Potassium 4.3 mEq/L (3.5-5.1)
[2017-08-19] MEDS ORDERED: Furosemide 40 MG/4 ML VIAL IVP ONE (19:50)
[2017-08-19] MEDS ORDERED: Naloxone 0.4 MG/ML INJ IVP PRN ×2 (21:15→23:51)
[2017-08-19] MEDS ORDERED: D5% in Water 1,000 ML IVC PRN ×2 (21:19→23:51)
[2017-08-19] MEDS ORDERED: Dextrose Gel 15 GM/37.5 ML TUBE PO PRN ×4 (21:19→23:51)
[2017-08-19] MEDS ORDERED: *HR* Dextrose 50 % in Water (Syg) 50 ML SYRINGE IVP PRN ×2 (21:19→23:51)
[2017-08-19] MEDS ORDERED: Methyl Salicylate/Menthol 28 GM TUBE TP PRN (23:51)
[2017-08-19] MEDS ORDERED: *HR* HYDROcodone/Acet 5/325 mg TABLET PO PRN (23:51)
[2017-08-19] MEDS ORDERED: *HR* Digoxin 0.125 MG TABLET PO SCH (23:51)
[2017-08-20] MEDS ORDERED: *HR* Enoxaparin 40 MG/0.4 ML SYRINGE SQ SCH (07:00)
[2017-08-20] MEDS ORDERED: CRANBERRY PO SCH (09:00)
[2017-08-20] MEDS ORDERED: Isosorbide MONOnitrate (24 HR) 30 MG TAB.ER.24H PO SCH (09:00)
[2017-08-20] MEDS: Metoprolol XL (24 HR) Succ 50 MG TAB.ER.24H PO SCH (09:37)
[2017-08-20] MEDS: Gabapentin 100 MG CAPSULE PO SCH ×2 (09:42→21:03)
[2017-08-20] MEDS: Cholecalciferol (D-3) 1,000 UNIT TABLET PO SCH (09:42)
[2017-08-20] MEDS ORDERED: Isosorbide MONOnitrate (24 HR) 60 MG TAB.ER.24H PO SCH (14:05)
--- NOTE | 2017-08-20 14:13 | Internal Med History&Physical ---
Date of Encounter: 08/20/17 Time of Encounter: 13:35 Assessment and Plan (1) CHF (congestive heart failure) Current visit: Yes Status: Chronic She has been started on IV Lasix. Isosorbide dose will be increased. Continue Lanoxin and Toprol. Will order echocardiogram to follow-up on valvular abnormalities seen February 2017 echocardiogram. Qualifiers: Heart failure type: diastolic Heart failure chronicity: acute on chronic Qualified Code(s): I50.33 - Acute on chronic diastolic (congestive) heart failure (2) DVT (deep venous thrombosis) Current visit: No Status: Acute Continue Coumadin and monitor PT/INR. Qualifiers: DVT location: lower extremity Affected thrombotic vein of extremity: unspecified vein of extremity Chronicity: acute Laterality: right Qualified Code(s): I82.401 - Acute embolism and thrombosis of unspecified deep veins of right lower extremity (3) Weakness Current visit: No Status: Acute She will have physical therapy and occupational therapy evaluations with ongoing intervention. (4) CKD (chronic kidney disease) stage 4, GFR 15-29 ml/min Current visit: No Status: Chronic We will monitor renal indices (5) DM type 2 (diabetes mellitus, type 2) Current visit: No Status: Chronic Diet controlled. Hemoglobin A1c was 5.4% on 08/03/2017. Qualifiers: Diabetes mellitus complication status: with kidney complications Diabetes mellitus complication detail: with chronic kidney disease Diabetes mellitus retirement insulin use: without retirement use Chronic kidney disease stage: stage 4 (severe) Qualified Code(s): E11.22 - Type 2 diabetes mellitus with diabetic chronic kidney disease; N18.4 - Chronic kidney disease, stage 4 (severe ) (6) HTN (hypertension) Current visit: No Status: Chronic Continue Cardura, Imdur, and Toprol. Qualifiers: Hypertension type: essential hypertension Qualified Code(s): I10 - Essential (primary) hypertension (7) Hypothyroidism Current visit: No Status: Chronic TSH was normal at 0.866 on 02/11/2017. We will recheck in a.m. Qualifiers: Hypothyroidism type: unspecified Qualified Code(s): E03.9 - Hypothyroidism , unspecified (8) Anemia Current visit: No Status: Acute Anemia testing 02/11/2078 showed iron 61, transferrin saturation 17%, transferrin 261, and ferritin 126. B12 was 846 and folate 17.0 on 07/27/2016. We will recheck labs in a.m. Qualifiers: Anemia type: unspecified type Qualified Code(s): D64.9 - Anemia, unspecified Internal Medicine - H&P: HPI Chief complaint: Dyspnea Admitted From: Emergency Dept Plans for Post Hospital Care: Home History of present illness: Ms. Allison is a 82 year old female who came to the emergency room stating she had worsening dyspnea over the preceding 3 days. She had been discharged from [facility] on August 16 after admission there from [facility] swing bed 07/31/2017. She reports orthopnea and dyspnea on exertion and occasionally at rest over the next few days. She came to emergency room and was evaluated and was felt to have exacerbation of heart failure. She was admitted to [facility] for ongoing care needs. She was hospitalized at [facility] acute-care July 10 and swing bed July 14 after presenting initially with abdominal pain. The etiology of the pain was not determined with certainty. She had resolution of pain by the time of discharge and to swing bed. She denies abdominal pain at the present time. She had right leg DVT documented and was started on Coumadin. She was discharged to [facility] for ongoing rehabilitation needs. Past Med Surg Social Fam HX - Past Medical History Medical history: arthritis, asthma, CHF, diabetes, GERD, hyperlipidemia, hypertension, renal disease, thyroid disease Psychiatric history: no psych history - Past Surgical History Surgical History: orthopedic, other - Social History Smoking Status: Never smoker Smokeless Tobacco Status: No Alcohol use: none Drug use: none - Family History Mother Adopted: No Family Member Ethnicity: Non- Living Status: Hx Family Cardiac Disorders: Yes Internal Medicine - H&P: Meds Allopurinol 300 mg PO DAILY 03/03/17 [History] Cranberry Conc/C/Bacill Coag [Cranberry Tablet] 1 each PO DAILY 03/03/17 [ History] Omeprazole 20 mg PO DAILY 03/03/17 [History] Acetaminophen [Tylenol] 500 mg PO Q6HR tab 03/10/17 [Rx] Atorvastatin [Lipitor] 80 mg PO DAILY tab 03/10/17 [Rx] Cholecalciferol (D-3) [Vitamin D] 1,000 unit PO DAILY tab 03/10/17 [Rx] Digoxin [Lanoxin] 0.125 mg PO QOD #15 tab 03/24/17 [Rx] Doxazosin [Cardura] 8 mg PO HS #60 tablet 03/24/17 [Rx] Isosorbide MONOnitrate (24 HR) [Imdur] 30 mg PO DAILY #30 tab.er.24h 03/24/17 [ Rx] Metoprolol XL (24 HR) Succ [Toprol Xl] 50 mg PO DAILY #30 tab.er.24h 03/24/17 [ Rx] MOM Conc [MILK OF MAGNESIA conc] 10 ml PO Q48H ud.liq 07/14/17 [Rx] Methyl Salicylate/Menthol [Bengay] 1 appl TP BID PRN tube 07/14/17 [Rx] Bumetanide [Bumex] 1 mg PO DAILY tablet 07/31/17 [Rx] Gabapentin [Neurontin] 100 mg PO BID capsule 07/31/17 [Rx] HYDROcodone/Acet 5/325 mg [Conklin 5-325 mg] 1 tab PO Q4HR PRN #60 tablet [Rx] 3 Allergy/AdvReac Type Severity Reaction Status Date / Time ibuprofen [From Motrin IB] AdvReac Hives Verified 03/02/17 09:24 Sulfa (Sulfonamide AdvReac Hives Verified 03/02/17 09:24 Antibiotics) All Systems PM: A 10-system review of systems was performed and is negative for pertinent findings except as documented above in the HPI. Review of systems: Review of systems from her July 2017 [facility] hospitalization were reviewed and revised as below. Gen.: Her weight has been stable at approximately 90 kg since the March 2015 [facility] hospitalization. Cardiovascular: She has a history of hypertension and CHF. She had a heart catheter with angioplasty of the LAD and ramus without stent placement prior to 03/02/2017 bladder stimulation surgery. Echocardiogram showed LVEF of 50% with indeterminant LV diastolic function. There was mild to moderate AI, moderate MR , mild TR, and increased thickness of the LV posterior wall at 1.5 cm. She denies AL angina DVT or pulmonary embolus. Respiratory: She is a lifelong nonsmoker. She claims a diagnosis of asthma. GI:As per history of present illness. She has GERD but no other disorders of liver or gallbladder or extend pancreas. : She has CKD3 and follows with a sba underwriter at [facility]. She had a bladder stimulator implant surgery 03/02/2017. She denies other disorders of her kidneys or bladder. Neurologic: She denies large distribution strokes or seizures. Endocrine: She was diagnosed with DM 2 in 2007. She has hypothyroidism, hyperlipidemia, vitamin D deficiency, and gout Hematology/oncology She has chronic anemia with workup showing no factor deficiency. She has no known internal malignancies. Musk skeletal: She has history of DJD and gout. She had left pelvis fracture and was in acute care/swing bed at [facility] March 2017. Psychiatric: She denies anxiety, depression, or other mental health issues. - Constitutional Vitals: Temp Pulse Resp BP Pulse Ox 97.9 F 57 18 160/73 96 08/20/17 10:44 08/20/17 12:21 08/20/17 10:44 08/20/17 10:44 08/20/17 12:21 Exam: Alcohol: She is a well-developed overweight female sitting in a chair at bedside appears in no acute distress HEENT: Head is atraumatic and normocephalic. Eyes: EOMI. There is no scleral icterus. Mouth: Mucosa is moist. Neck: Supple and nontender. There is no thyromegaly or adenopathy noted. Heart: Regular without murmurs gallops or ectopics Lungs: No wheezes or crackles are heard. Abdomen: Soft and nontender. Exam is limited because she is in the seated position. Extremities: She has 2+ edema of the dorsum of the feet bilaterally. She has tense pitting edema on the lower legs bilaterally. She has mild DJD changes of her hands. Neurologic: Mental status: She is talkative and a good historian. Cranial nerves: Smile is symmetric. Forehead wrinkles bilaterally. Tongue protrudes midline. EOMI. Motor: There is no pronator drift. Cerebellar: Finger to nose is intact bilaterally. Skin: Warm and dry Internal Med - H&P Results - Labs CBC & Chem 7: 08/19/17 18:30 08/19/17 18:30 - VTE Documentation of Mechanical Device: Graduated compression elastic hosiery
[2017-08-20] MEDS: Furosemide 40 MG/4 ML VIAL IVP SCH ×2 (16:11)
[2017-08-20] MEDS: *HR* Warfarin 2 MG TABLET PO SCH (17:26)
[2017-08-21 05:29] LABS: Basophils % 0.2 %; Eosinophils # 0.2 K/mcL (0.0-0.6); Hematocrit 23.7 % (35.3-44.9); Hemoglobin 7.1 g/dL (11.5-15.4); Immature Granulocytes % 1.3 % (0-4); Lymphocytes % 18.7 %; Mean Corpuscular Hemoglobin 30.7 pg (28.0-33.3); Mean Corpuscular Volume 102.6 fL (83.0-100.0); Mean Platelet Volume 11.2 fL (9.4-12.4); Monocytes # 0.5 K/mcL (0.0-1.3); Monocytes % 8.7 %; Neutrophils # 3.6 K/mcL (1.6-8.9); Platelet Count 200 K/mcL (140-400); Red Blood Count 2.31 M/mcL (3.82-4.97); Red Cell Distribution Width 18.2 % (11.5-14.5); Segmented Neutrophils % 68.1 %
[2017-08-21 05:56] LABS: Albumin 3.1 g/dL (3.5-5.7); Albumin/Globulin Ratio 1.3 (1.1-2.2); Bilirubin,Total 0.4 mg/dL (0.3-1.0); Calcium 8.2 mg/dL (8.6-10.3); Digoxin 1.2 ng/mL (0.8-2.0); Globulin 2.3 g/dL (2.4-3.5); Magnesium 1.8 mg/dL (1.6-2.6); Phosphorous 3.7 mg/dL (2.7-4.5); Total Protein 5.4 g/dL (6.4-8.9)
[2017-08-21 06:06] LABS: Thyroid Stimulating Hormone 5.955 mcIU/mL (0.340-5.600)
[2017-08-21 06:45] LABS: Anisocytosis 2+ (Not Present); Polychromasia 1+ (Not Present)
[2017-08-21 06:46] LABS: Basophilic Stippling 1+ (Not Present); Hypochromasia Present (Not Present); Macrocytosis Present (Not Present)
[2017-08-21] MEDS: Furosemide 40 MG/4 ML VIAL IVP SCH ×2 (07:45→17:34)
[2017-08-21] MEDS: Metoprolol XL (24 HR) Succ 50 MG TAB.ER.24H PO SCH (08:11)
[2017-08-21] MEDS: Cholecalciferol (D-3) 1,000 UNIT TABLET PO SCH (08:11)
[2017-08-21] MEDS: Gabapentin 100 MG CAPSULE PO SCH ×2 (08:11→21:20)
[2017-08-21 09:46] LABS: Folate 13.4 ng/mL (3.0-16.0)
[2017-08-21] MEDS: Isosorbide MONOnitrate (24 HR) 30 MG TAB.ER.24H PO SCH (10:18)
--- NOTE | 2017-08-21 18:45 | Internal Med Progress Note ---
Date of Encounter: 08/21/17 Time of Encounter: 18:30 - Assessment and plan (1) CHF (congestive heart failure) Current Visit: Yes Status: Chronic Assessment and plan: August 21. Continue IV Lasix with isosorbide, Lanoxin, and Toprol. Echocardiogram shows no significant change from previous study with LVEF of 60- 65% and indeterminant diastolic function reported. The E/A ratio was 1.3. There was mild aortic stenosis and aortic regurgitation. There was mild to moderate tricuspid regurgitation and mild mitral regurgitation. There was moderate pulmonary hypertension with estimated RVSP 49 mmHg. Qualifiers: Heart failure type: diastolic Heart failure chronicity: acute on chronic Qualified Code(s): I50.33 - Acute on chronic diastolic (congestive) heart failure (2) DVT (deep venous thrombosis) Current Visit: No Status: Acute Assessment and plan: August 21. Continue Coumadin and monitor PT/INR. Qualifiers: DVT location: lower extremity Affected thrombotic vein of extremity: unspecified vein of extremity Chronicity: acute Laterality: right Qualified Code(s): I82.401 - Acute embolism and thrombosis of unspecified deep veins of right lower extremity (3) Weakness Current Visit: No Status: Acute Assessment and plan: August 21. Continue therapy interventions. (4) CKD (chronic kidney disease) stage 4, GFR 15-29 ml/min Current Visit: No Status: Chronic Assessment and plan: August 21. Will monitor renal indices. (5) DM type 2 (diabetes mellitus, type 2) Current Visit: No Status: Chronic Assessment and plan: August 21. Diet controlled. Hemoglobin A1c was 5.4% on 08/03/2017. Qualifiers: Diabetes mellitus complication status: with kidney complications Diabetes mellitus complication detail: with chronic kidney disease Diabetes mellitus adjunct faculty for medical terminology insulin use: without adjunct faculty for medical terminology use Chronic kidney disease stage: stage 4 (severe) Qualified Code(s): E11.22 - Type 2 diabetes mellitus with diabetic chronic kidney disease; N18.4 - Chronic kidney disease, stage 4 (severe ) (6) HTN (hypertension) Current Visit: No Status: Chronic Assessment and plan: August 21. Continue Cardura, Imdur, and Toprol. Qualifiers: Hypertension type: essential hypertension Qualified Code(s): I10 - Essential (primary) hypertension (7) Hypothyroidism Current Visit: No Status: Chronic Assessment and plan: August 21. TSH was minimally elevated at 5.955. We will start Synthroid. Qualifiers: Hypothyroidism type: unspecified Qualified Code(s): E03.9 - Hypothyroidism , unspecified (8) Anemia Current Visit: No Status: Acute Assessment and plan: August 21. Anemia testing showed iron 24, transferrin saturation 8%, transferrin 208, ferritin 49, B12 398, and folate 13.4. I will give her 1 unit of blood since hemoglobin is decreased to 7.1. Will also order iron dextran infusion. Qualifiers: Anemia type: unspecified type Qualified Code(s): D64.9 - Anemia, unspecified - Subjective Interval history: She has no new complaints and states her dyspnea has slightly lessened. - Constitutional Vitals: Temp Pulse Resp BP Pulse Ox 98.6 F 62 17 171/69 96 08/21/17 14:41 08/21/17 14:41 08/21/17 14:41 08/21/17 14:41 08/21/17 14:41 Exam: She is resting comfortably in bed and appears in no acute distress. Her skin is pale. Extremities show very slight decrease in edema. Heart is regular without murmurs gallops or ectopics. Lungs are clear anteriorly. I reviewed her medications and lab results. Internal Medicine: Result - Labs CBC & Chem 7: 08/21/17 04:04 08/21/17 04:04 Labs: Short CBC 08/21/17 Range/Units 04:04 WBC 5.3 (4.3-11.1) K/mcL Hgb 7.1 L (11.5-15.4) g/dL Hct 23.7 L (35.3-44.9) % Plt Count 200 (140-400) K/mcL Neutrophils # 3.6 (1.6-8.9) K/mcL BMP 08/21/17 04:04 Sodium 138 Potassium 4.0 Chloride 101 Carbon Dioxide 31 H BUN 25 H Creatinine 2.18 H Glucose 94 Calcium 8.2 L Liver Function 08/21/17 Range/Units 04:04 Total Bilirubin 0.4 (0.3-1.0) mg/dL AST 15 (13-39) Units/L ALT 10 (7-52) Units/L Alkaline Phosphatase 82 (34-104) Units/L Albumin 3.1 L (3.5-5.7) g/dL - ABG Interpretation ABG results: PT/INR, D-dimer PT 28.2 Seconds (9.4-12.1) H D 08/19/17 18:30 D-Dimer 293 ng/mLFEU (0-500) 08/19/17 18:30 - VTE Documentation of Mechanical Device: Graduated compression elastic hosiery Consult Discharge Plan - Plan Referrals: Macy Reed MD [Primary Care Provider] - 1 week
[2017-08-21] MEDS: *HR* Warfarin 2 MG TABLET PO SCH (18:56)
[2017-08-22] MEDS ORDERED: 0.9 % Sodium Chloride 250 ML ONE (00:59)
[2017-08-22 08:02] LABS: Basophils % 0.4 %; Eosinophils # 0.2 K/mcL (0.0-0.6); Eosinophils % 3.4 %; Hematocrit 27.1 % (35.3-44.9); Immature Granulocytes % 0.7 % (0-4); Lymphocytes % 18.4 %; Mean Corpuscular HGB Conc 29.5 g/dL (31.6-35.5); Mean Corpuscular Hemoglobin 29.9 pg (28.0-33.3); Mean Corpuscular Volume 101.1 fL (83.0-100.0); Mean Platelet Volume 10.2 fL (9.4-12.4); Monocytes # 0.4 K/mcL (0.0-1.3); Monocytes % 7.8 %; Neutrophils # 3.9 K/mcL (1.6-8.9); Platelet Count 178 K/mcL (140-400); Red Blood Count 2.68 M/mcL (3.82-4.97); Red Cell Distribution Width 18.9 % (11.5-14.5); Segmented Neutrophils % 69.3 %
[2017-08-22] MEDS: Furosemide 40 MG/4 ML VIAL IVP SCH ×2 (08:32→17:43)
[2017-08-22] MEDS: Isosorbide MONOnitrate (24 HR) 30 MG TAB.ER.24H PO SCH (08:33)
[2017-08-22] MEDS: Cholecalciferol (D-3) 1,000 UNIT TABLET PO SCH (08:34)
[2017-08-22] MEDS: Gabapentin 100 MG CAPSULE PO SCH ×2 (08:34→20:30)
[2017-08-22] MEDS: Metoprolol XL (24 HR) Succ 50 MG TAB.ER.24H PO SCH (09:15)
[2017-08-22] MEDS: *HR* Digoxin 0.125 MG TABLET PO SCH (09:20)
[2017-08-22 09:50] LABS: Calcium 8.1 mg/dL (8.6-10.3); Potassium 4.1 mEq/L (3.5-5.1)
[2017-08-22] MEDS ORDERED: IRON DEXTRAN COMPLEX IVPB ONE (10:00)
[2017-08-22] MEDS ORDERED: SODIUM CHLORIDE 0.9% IVPB ONE (10:00)
--- NOTE | 2017-08-22 10:17 | Internal Med Progress Note ---
Date of Encounter: 08/22/17 Time of Encounter: 10:10 - Assessment and plan (1) CHF (congestive heart failure) Current Visit: Yes Status: Chronic Assessment and plan: August 21. Continue IV Lasix with isosorbide, Lanoxin, and Toprol. Echocardiogram shows no significant change from previous study with LVEF of 60- 65% and indeterminant diastolic function reported. The E/A ratio was 1.3. There was mild aortic stenosis and aortic regurgitation. There was mild to moderate tricuspid regurgitation and mild mitral regurgitation. There was moderate pulmonary hypertension with estimated RVSP 49 mmHg. August 22. Continue present regimen Qualifiers: Heart failure type: diastolic Heart failure chronicity: acute on chronic Qualified Code(s): I50.33 - Acute on chronic diastolic (congestive) heart failure (2) DVT (deep venous thrombosis) Current Visit: No Status: Acute Assessment and plan: August 21. Continue Coumadin and monitor PT/INR. Qualifiers: DVT location: lower extremity Affected thrombotic vein of extremity: unspecified vein of extremity Chronicity: acute Laterality: right Qualified Code(s): I82.401 - Acute embolism and thrombosis of unspecified deep veins of right lower extremity (3) Weakness Current Visit: No Status: Acute Assessment and plan: August 21. Continue therapy interventions. August 22. I told her I did not think she would do well being discharged home in 1-2 days. I feel she will need longer therapy intervention and possibly even require exterminator termite care at a SNF. (4) CKD (chronic kidney disease) stage 4, GFR 15-29 ml/min Current Visit: No Status: Chronic Assessment and plan: August 21. Will monitor renal indices. (5) DM type 2 (diabetes mellitus, type 2) Current Visit: No Status: Chronic Assessment and plan: August 21. Diet controlled. Hemoglobin A1c was 5.4% on 08/03/2017. Qualifiers: Diabetes mellitus complication status: with kidney complications Diabetes mellitus complication detail: with chronic kidney disease Diabetes mellitus exterminator termite insulin use: without exterminator termite use Chronic kidney disease stage: stage 4 (severe) Qualified Code(s): E11.22 - Type 2 diabetes mellitus with diabetic chronic kidney disease; N18.4 - Chronic kidney disease, stage 4 (severe ) (6) HTN (hypertension) Current Visit: No Status: Chronic Assessment and plan: August 21. Continue Cardura, Imdur, and Toprol. Qualifiers: Hypertension type: essential hypertension Qualified Code(s): I10 - Essential (primary) hypertension (7) Hypothyroidism Current Visit: No Status: Chronic Assessment and plan: August 21. TSH was minimally elevated at 5.955. We will start Synthroid. Qualifiers: Hypothyroidism type: unspecified Qualified Code(s): E03.9 - Hypothyroidism , unspecified (8) Anemia Current Visit: No Status: Acute Assessment and plan: August 21. Anemia testing showed iron 24, transferrin saturation 8%, transferrin 208, ferritin 49, B12 398, and folate 13.4. I will give her 1 unit of blood since hemoglobin is decreased to 7.1. Will also order iron dextran infusion. August 22. Hemoglobin improved to 8.0. Continue to monitor Qualifiers: Anemia type: unspecified type Qualified Code(s): D64.9 - Anemia, unspecified - Subjective Interval history: August 21. She has no new complaints and states her dyspnea has slightly lessened. August 22. She has no new complaints. - Constitutional Vitals: Temp Pulse Resp BP Pulse Ox 98.2 F 56 18 158/52 97 08/22/17 08:30 08/22/17 08:30 08/22/17 08:30 08/22/17 08:30 08/22/17 08:30 Exam: She is sitting in a recliner with her legs elevated. She has decreased edema of her legs. Her affect is bright and cheerful. I reviewed her medications and lab results. Internal Medicine: Result - Labs CBC & Chem 7: 08/22/17 07:12 08/22/17 07:12 Labs: Short CBC 08/22/17 Range/Units 07:12 WBC 5.7 (4.3-11.1) K/mcL Hgb 8.0 L (11.5-15.4) g/dL Hct 27.1 L (35.3-44.9) % Plt Count 178 (140-400) K/mcL Neutrophils # 3.9 (1.6-8.9) K/mcL BMP 08/22/17 07:12 Sodium 142 Potassium 4.1 Chloride 103 Carbon Dioxide 31 H BUN 26 H Creatinine 2.23 H Glucose 83 Calcium 8.1 L - ABG Interpretation ABG results: PT/INR, D-dimer PT 28.2 Seconds (9.4-12.1) H D 08/19/17 18:30 D-Dimer 293 ng/mLFEU (0-500) 08/19/17 18:30 - VTE Documentation of Mechanical Device: Graduated compression elastic hosiery Consult Discharge Plan - Plan Referrals: Macy Reed MD [Primary Care Provider] - 1 week
--- NOTE | 2017-08-22 17:23 | Electrocardiograph Report ---
[address] [place], [place] [address] Test Date: 2017-08-19 Pat Name: Sudeep Allison Department: [id number] Room: [facility] Gender: F Income Tax Advisor: [id number] : 1935 Requested By: Ning Dykes Order Number: [id number] Reading MD: Shiloh Sanon Measurements Intervals [place] Rate: 80 P: 103 [place]: 300 QRS: 49 QRSD: 98 T: -73 QT: 329 QTc: 364 Interpretive Statements SINUS RHYTHM WITH FIRST DEGREE AV BLOCK ST DEVIATION AND MODERATE T-WAVE ABNORMALITY, CONSIDER LATERAL ISCHEMIA ST DEVIATION AND MODERATE T-WAVE ABNORMALITY, CONSIDER INFERIOR ISCHEMIA Electronically Signed On 08-22-2017 17:22:26 EST by Shiloh Sanon
[2017-08-22] MEDS: *HR* Warfarin 2 MG TABLET PO SCH (17:34)
[2017-08-22] MEDS: cloNIDine HCl 0.1 MG TABLET PO SCH (20:31)
[2017-08-23 06:50] LABS: Basophils % 0.1 %; Eosinophils # 0.2 K/mcL (0.0-0.6); Hematocrit 26.5 % (35.3-44.9); Hemoglobin 8.1 g/dL (11.5-15.4); Immature Granulocytes % 0.7 % (0-4); Lymphocytes % 13.6 %; Mean Corpuscular HGB Conc 30.6 g/dL (31.6-35.5); Mean Corpuscular Hemoglobin 30.7 pg (28.0-33.3); Mean Corpuscular Volume 100.4 fL (83.0-100.0); Mean Platelet Volume 10.6 fL (9.4-12.4); Monocytes # 0.4 K/mcL (0.0-1.3); Neutrophils # 5.3 K/mcL (1.6-8.9); Platelet Count 190 K/mcL (140-400); Red Blood Count 2.64 M/mcL (3.82-4.97); Red Cell Distribution Width 18.6 % (11.5-14.5); Segmented Neutrophils % 76.6 %
[2017-08-23 07:02] LABS: INR 3.2; Prothrombin Time 35.4 Seconds (9.4-12.1)
[2017-08-23 07:16] LABS: Calcium 8.3 mg/dL (8.6-10.3); Potassium 3.9 mEq/L (3.5-5.1)
[2017-08-23] MEDS: Isosorbide MONOnitrate (24 HR) 30 MG TAB.ER.24H PO SCH (08:08)
[2017-08-23] MEDS: Furosemide 40 MG/4 ML VIAL IVP SCH ×2 (08:08→17:05)
[2017-08-23] MEDS: cloNIDine HCl 0.1 MG TABLET PO SCH ×3 (08:08→21:07)
[2017-08-23] MEDS: Gabapentin 100 MG CAPSULE PO SCH (08:09)
[2017-08-23] MEDS: Cholecalciferol (D-3) 1,000 UNIT TABLET PO SCH (08:09)
[2017-08-23] MEDS: Metoprolol XL (24 HR) Succ 50 MG TAB.ER.24H PO SCH (08:10)
--- NOTE | 2017-08-23 09:42 | Internal Med Progress Note ---
Date of Encounter: 08/23/17 Time of Encounter: 09:35 - Assessment and plan (1) CHF (congestive heart failure) Current Visit: Yes Status: Chronic Assessment and plan: August 21. Continue IV Lasix with isosorbide, Lanoxin, and Toprol. Echocardiogram shows no significant change from previous study with LVEF of 60- 65% and indeterminant diastolic function reported. The E/A ratio was 1.3. There was mild aortic stenosis and aortic regurgitation. There was mild to moderate tricuspid regurgitation and mild mitral regurgitation. There was moderate pulmonary hypertension with estimated RVSP 49 mmHg. August 22. Continue present regimen August 23. Will increase Lasix and apply DANNA hose as ordered Qualifiers: Heart failure type: diastolic Heart failure chronicity: acute on chronic Qualified Code(s): I50.33 - Acute on chronic diastolic (congestive) heart failure (2) DVT (deep venous thrombosis) Current Visit: No Status: Acute Assessment and plan: August 21. Continue Coumadin and monitor PT/INR. Qualifiers: DVT location: lower extremity Affected thrombotic vein of extremity: unspecified vein of extremity Chronicity: acute Laterality: right Qualified Code(s): I82.401 - Acute embolism and thrombosis of unspecified deep veins of right lower extremity (3) Weakness Current Visit: No Status: Acute Assessment and plan: August 21. Continue therapy interventions. August 22. I told her I did not think she would do well being discharged home in 1-2 days. I feel she will need longer therapy intervention and possibly even require long term care pharmacist care at a SNF. (4) CKD (chronic kidney disease) stage 4, GFR 15-29 ml/min Current Visit: No Status: Chronic Assessment and plan: August 21. Will monitor renal indices. (5) DM type 2 (diabetes mellitus, type 2) Current Visit: No Status: Chronic Assessment and plan: August 21. Diet controlled. Hemoglobin A1c was 5.4% on 08/03/2017. Qualifiers: Diabetes mellitus complication status: with kidney complications Diabetes mellitus complication detail: with chronic kidney disease Diabetes mellitus halfway insulin use: without halfway use Chronic kidney disease stage: stage 4 (severe) Qualified Code(s): E11.22 - Type 2 diabetes mellitus with diabetic chronic kidney disease; N18.4 - Chronic kidney disease, stage 4 (severe ) (6) HTN (hypertension) Current Visit: No Status: Chronic Assessment and plan: August 21. Continue Cardura, Imdur, and Toprol. August 22. Clonidine was started yesterday. Will increase dose and continue Cardura, Imdur, and Toprol. Qualifiers: Hypertension type: essential hypertension Qualified Code(s): I10 - Essential (primary) hypertension (7) Hypothyroidism Current Visit: No Status: Chronic Assessment and plan: August 21. TSH was minimally elevated at 5.955. We will start Synthroid. Qualifiers: Hypothyroidism type: unspecified Qualified Code(s): E03.9 - Hypothyroidism , unspecified (8) Anemia Current Visit: No Status: Acute Assessment and plan: August 21. Anemia testing showed iron 24, transferrin saturation 8%, transferrin 208, ferritin 49, B12 398, and folate 13.4. I will give her 1 unit of blood since hemoglobin is decreased to 7.1. Will also order iron dextran infusion. August 22. Hemoglobin improved to 8.0. Continue to monitor Qualifiers: Anemia type: unspecified type Qualified Code(s): D64.9 - Anemia, unspecified - Subjective Interval history: August 21. She has no new complaints and states her dyspnea has slightly lessened. August 22. She has no new complaints. August 23. She has no new complaints. - Constitutional Vitals: Temp Pulse Resp BP Pulse Ox 98.1 F 57 16 149/64 93 08/23/17 06:10 08/23/17 06:10 08/23/17 06:10 08/23/17 06:10 08/23/17 06:10 Exam: She is resting comfortably in bed appears in no acute distress. She is wearing oxygen by nasal cannula. Extremities show unchanged edema. I reviewed her medications and lab results. Internal Medicine: Result - Labs CBC & Chem 7: 08/23/17 06:39 08/23/17 06:39 Labs: Short CBC 08/23/17 Range/Units 06:39 WBC 7.0 (4.3-11.1) K/mcL Hgb 8.1 L (11.5-15.4) g/dL Hct 26.5 L (35.3-44.9) % Plt Count 190 (140-400) K/mcL Neutrophils # 5.3 (1.6-8.9) K/mcL BMP 08/22/17 08/23/17 07:12 06:39 Sodium 142 141 Potassium 4.1 3.9 Chloride 103 102 Carbon Dioxide 31 H 32 H BUN 26 H 27 H Creatinine 2.23 H 2.19 H Glucose 83 86 Calcium 8.1 L 8.3 L - ABG Interpretation ABG results: PT/INR, D-dimer PT 35.4 Seconds (9.4-12.1) H 08/23/17 06:39 D-Dimer 293 ng/mLFEU (0-500) 08/19/17 18:30 - VTE Documentation of Mechanical Device: Graduated compression elastic hosiery Consult Discharge Plan - Plan Referrals: Macy Reed MD [Primary Care Provider] - 1 week
[2017-08-24] MEDS: Furosemide 40 MG/4 ML VIAL IVP SCH ×2 (08:10→17:57)
[2017-08-24] MEDS: cloNIDine HCl 0.1 MG TABLET PO SCH ×2 (08:10→21:04)
[2017-08-24] MEDS: *HR* Digoxin 0.125 MG TABLET PO SCH (08:11)
[2017-08-24] MEDS: Metoprolol XL (24 HR) Succ 50 MG TAB.ER.24H PO SCH (08:11)
[2017-08-24] MEDS: Isosorbide MONOnitrate (24 HR) 30 MG TAB.ER.24H PO SCH (08:11)
[2017-08-24] MEDS: Cholecalciferol (D-3) 1,000 UNIT TABLET PO SCH (08:12)
--- NOTE | 2017-08-24 18:17 | Internal Med Progress Note ---
Date of Encounter: 08/24/17 Time of Encounter: 18:10 - Assessment and plan (1) CHF (congestive heart failure) Current Visit: Yes Status: Chronic Assessment and plan: August 21. Continue IV Lasix with isosorbide, Lanoxin, and Toprol. Echocardiogram shows no significant change from previous study with LVEF of 60- 65% and indeterminant diastolic function reported. The E/A ratio was 1.3. There was mild aortic stenosis and aortic regurgitation. There was mild to moderate tricuspid regurgitation and mild mitral regurgitation. There was moderate pulmonary hypertension with estimated RVSP 49 mmHg. August 22. Continue present regimen August 23. Will increase Lasix and apply DANNA hose as ordered Qualifiers: Heart failure type: diastolic Heart failure chronicity: acute on chronic Qualified Code(s): I50.33 - Acute on chronic diastolic (congestive) heart failure (2) DVT (deep venous thrombosis) Current Visit: No Status: Acute Assessment and plan: August 21. Continue Coumadin and monitor PT/INR. Qualifiers: DVT location: lower extremity Affected thrombotic vein of extremity: unspecified vein of extremity Chronicity: acute Laterality: right Qualified Code(s): I82.401 - Acute embolism and thrombosis of unspecified deep veins of right lower extremity (3) Weakness Current Visit: No Status: Acute Assessment and plan: August 21. Continue therapy interventions. August 22. I told her I did not think she would do well being discharged home in 1-2 days. I feel she will need longer therapy intervention and possibly even require terminal manager care at a SNF. August 24. Continue PT and OT interventions. Awaiting insurance approval for swing bed (4) CKD (chronic kidney disease) stage 4, GFR 15-29 ml/min Current Visit: No Status: Chronic Assessment and plan: August 21. Will monitor renal indices. (5) DM type 2 (diabetes mellitus, type 2) Current Visit: No Status: Chronic Assessment and plan: August 21. Diet controlled. Hemoglobin A1c was 5.4% on 08/03/2017. Qualifiers: Diabetes mellitus complication status: with kidney complications Diabetes mellitus complication detail: with chronic kidney disease Diabetes mellitus half-way insulin use: without terminal manager use Chronic kidney disease stage: stage 4 (severe) Qualified Code(s): E11.22 - Type 2 diabetes mellitus with diabetic chronic kidney disease; N18.4 - Chronic kidney disease, stage 4 (severe ) (6) HTN (hypertension) Current Visit: No Status: Chronic Assessment and plan: August 21. Continue Cardura, Imdur, and Toprol. August 22. Clonidine was started yesterday. Will increase dose and continue Cardura, Imdur, and Toprol. August 24. Blood pressure significantly improved. Continue present regimen Qualifiers: Hypertension type: essential hypertension Qualified Code(s): I10 - Essential (primary) hypertension (7) Hypothyroidism Current Visit: No Status: Chronic Assessment and plan: August 21. TSH was minimally elevated at 5.955. We will start Synthroid. Qualifiers: Hypothyroidism type: unspecified Qualified Code(s): E03.9 - Hypothyroidism , unspecified (8) Anemia Current Visit: No Status: Acute Assessment and plan: August 21. Anemia testing showed iron 24, transferrin saturation 8%, transferrin 208, ferritin 49, B12 398, and folate 13.4. I will give her 1 unit of blood since hemoglobin is decreased to 7.1. Will also order iron dextran infusion. August 22. Hemoglobin improved to 8.0. Continue to monitor August 24. Recheck labs in a.m. Qualifiers: Anemia type: unspecified type Qualified Code(s): D64.9 - Anemia, unspecified - Subjective Interval history: August 21. She has no new complaints and states her dyspnea has slightly lessened. August 22. She has no new complaints. August 23. She has no new complaints. August 24. She has no new complaints. - Constitutional Vitals: Temp Pulse Resp BP Pulse Ox 97.3 F L 54 20 145/58 95 08/24/17 15:05 08/24/17 17:56 08/24/17 15:05 08/24/17 17:56 08/24/17 17:56 Exam: She is resting comfortably in a recliner chair with her feet elevated. DANNA hose are in place. Her affect is very bright and cheerful. I reviewed her medications and lab results. Internal Medicine: Result - Labs CBC & Chem 7: 08/23/17 06:39 08/23/17 06:39 - ABG Interpretation ABG results: PT/INR, D-dimer PT 35.4 Seconds (9.4-12.1) H 08/23/17 06:39 D-Dimer 293 ng/mLFEU (0-500) 08/19/17 18:30 - VTE Documentation of Mechanical Device: Graduated compression elastic hosiery Consult Discharge Plan - Plan Referrals: Macy Reed MD [Primary Care Provider] - 1 week
[2017-08-25 06:31] LABS: Basophils % 0.5 %; Eosinophils # 0.2 K/mcL (0.0-0.6); Eosinophils % 2.9 %; Hematocrit 28.5 % (35.3-44.9); Hemoglobin 8.7 g/dL (11.5-15.4); Immature Granulocytes % 1.3 % (0-4); Lymphocytes # 0.9 K/mcL (0.6-4.6); Lymphocytes % 14.2 %; Mean Corpuscular HGB Conc 30.5 g/dL (31.6-35.5); Mean Corpuscular Hemoglobin 30.5 pg (28.0-33.3); Mean Platelet Volume 11.3 fL (9.4-12.4); Monocytes # 0.5 K/mcL (0.0-1.3); Monocytes % 7.5 %; Neutrophils # 4.5 K/mcL (1.6-8.9); Platelet Count 206 K/mcL (140-400); Red Blood Count 2.85 M/mcL (3.82-4.97); Red Cell Distribution Width 18.1 % (11.5-14.5); Segmented Neutrophils % 73.6 %
[2017-08-25 06:49] LABS: Calcium 8.7 mg/dL (8.6-10.3); Potassium 3.7 mEq/L (3.5-5.1)
[2017-08-25] MEDS: Metoprolol XL (24 HR) Succ 50 MG TAB.ER.24H PO SCH (08:31)
[2017-08-25] MEDS: cloNIDine HCl 0.1 MG TABLET PO SCH ×2 (08:38→20:38)
[2017-08-25] MEDS: Furosemide 40 MG/4 ML VIAL IVP SCH ×2 (08:38→17:00)
[2017-08-25] MEDS: Cholecalciferol (D-3) 1,000 UNIT TABLET PO SCH (08:38)
[2017-08-25] MEDS: Isosorbide MONOnitrate (24 HR) 30 MG TAB.ER.24H PO SCH (08:38)
[2017-08-25] MEDS: *HR* Warfarin 2 MG TABLET PO SCH (16:59)
--- NOTE | 2017-08-25 17:04 | Internal Med Progress Note ---
Date of Encounter: 08/25/17 Time of Encounter: 16:50 - Assessment and plan (1) CHF (congestive heart failure) Current Visit: Yes Status: Chronic Assessment and plan: August 21. Continue IV Lasix with isosorbide, Lanoxin, and Toprol. Echocardiogram shows no significant change from previous study with LVEF of 60- 65% and indeterminant diastolic function reported. The E/A ratio was 1.3. There was mild aortic stenosis and aortic regurgitation. There was mild to moderate tricuspid regurgitation and mild mitral regurgitation. There was moderate pulmonary hypertension with estimated RVSP 49 mmHg. August 22. Continue present regimen August 23. Will increase Lasix and apply DANNA hose as ordered August 25. Continue present regimen. Qualifiers: Heart failure type: diastolic Heart failure chronicity: acute on chronic Qualified Code(s): I50.33 - Acute on chronic diastolic (congestive) heart failure (2) DVT (deep venous thrombosis) Current Visit: No Status: Acute Assessment and plan: August 21. Continue Coumadin and monitor PT/INR. Qualifiers: DVT location: lower extremity Affected thrombotic vein of extremity: unspecified vein of extremity Chronicity: acute Laterality: right Qualified Code(s): I82.401 - Acute embolism and thrombosis of unspecified deep veins of right lower extremity (3) Weakness Current Visit: No Status: Acute Assessment and plan: August 21. Continue therapy interventions. August 22. I told her I did not think she would do well being discharged home in 1-2 days. I feel she will need longer therapy intervention and possibly even require custodial care at a SNF. August 24. Continue PT and OT interventions. Awaiting insurance approval for swing bed (4) CKD (chronic kidney disease) stage 4, GFR 15-29 ml/min Current Visit: No Status: Chronic Assessment and plan: August 21. Will monitor renal indices. (5) DM type 2 (diabetes mellitus, type 2) Current Visit: No Status: Chronic Assessment and plan: August 21. Diet controlled. Hemoglobin A1c was 5.4% on 08/03/2017. Qualifiers: Diabetes mellitus complication status: with kidney complications Diabetes mellitus complication detail: with chronic kidney disease Diabetes mellitus custodial insulin use: without custodial use Chronic kidney disease stage: stage 4 (severe) Qualified Code(s): E11.22 - Type 2 diabetes mellitus with diabetic chronic kidney disease; N18.4 - Chronic kidney disease, stage 4 (severe ) (6) HTN (hypertension) Current Visit: No Status: Chronic Assessment and plan: August 21. Continue Cardura, Imdur, and Toprol. August 22. Clonidine was started yesterday. Will increase dose and continue Cardura, Imdur, and Toprol. August 24. Blood pressure significantly improved. Continue present regimen Qualifiers: Hypertension type: essential hypertension Qualified Code(s): I10 - Essential (primary) hypertension (7) Hypothyroidism Current Visit: No Status: Chronic Assessment and plan: August 21. TSH was minimally elevated at 5.955. We will start Synthroid. Qualifiers: Hypothyroidism type: unspecified Qualified Code(s): E03.9 - Hypothyroidism , unspecified (8) Anemia Current Visit: No Status: Acute Assessment and plan: August 21. Anemia testing showed iron 24, transferrin saturation 8%, transferrin 208, ferritin 49, B12 398, and folate 13.4. I will give her 1 unit of blood since hemoglobin is decreased to 7.1. Will also order iron dextran infusion. August 22. Hemoglobin improved to 8.0. Continue to monitor August 24. Recheck labs in a.m. Qualifiers: Anemia type: unspecified type Qualified Code(s): D64.9 - Anemia, unspecified (9) Ceruminosis Current Visit: Yes Status: Acute Assessment and plan: August 25. Will order Debrox eardrops Qualifiers: Laterality: right Qualified Code(s): H61.21 - Impacted cerumen, right ear - Subjective Interval history: August 21. She has no new complaints and states her dyspnea has slightly lessened. August 22. She has no new complaints. August 23. She has no new complaints. August 24. She has no new complaints. August 25. She complains of fullness in her ears - Constitutional Vitals: Temp Pulse Resp BP Pulse Ox 98.4 F 54 18 187/54 94 08/25/17 06:34 08/25/17 06:34 08/25/17 06:34 08/25/17 06:34 08/25/17 06:34 Exam: She is sitting in a chair at bedside resting comfortably. Her feet are on the floor. She is not wearing DANNA hose. Her left TM is visualized well and has no significant canal cerumen . Right ear TM is not seen because of canal cerumen. I reviewed her medications and lab results. Internal Medicine: Result - Labs CBC & Chem 7: 08/25/17 06:14 08/25/17 06:14 Labs: Short CBC 08/25/17 Range/Units 06:14 WBC 6.1 (4.3-11.1) K/mcL Hgb 8.7 L (11.5-15.4) g/dL Hct 28.5 L (35.3-44.9) % Plt Count 206 (140-400) K/mcL Neutrophils # 4.5 (1.6-8.9) K/mcL BMP 08/25/17 06:14 Sodium 141 Potassium 3.7 Chloride 100 Carbon Dioxide 33 H BUN 30 H Creatinine 1.88 H Glucose 102 Calcium 8.7 - ABG Interpretation ABG results: PT/INR, D-dimer PT 35.4 Seconds (9.4-12.1) H 08/23/17 06:39 D-Dimer 293 ng/mLFEU (0-500) 08/19/17 18:30 - VTE Documentation of Mechanical Device: Graduated compression elastic hosiery Consult Discharge Plan - Plan Referrals: Macy Reed MD [Primary Care Provider] - 1 week
[2017-08-25] MEDS: Carbamide Peroxide 150 DROP/15 ML BOTTLE RIGHT EAR SCH (20:38)
[2017-08-26] MEDS: Furosemide 40 MG/4 ML VIAL IVP SCH ×2 (09:29→16:45)
[2017-08-26] MEDS: cloNIDine HCl 0.1 MG TABLET PO SCH ×2 (09:29→20:03)
[2017-08-26] MEDS: Cholecalciferol (D-3) 1,000 UNIT TABLET PO SCH (09:30)
[2017-08-26] MEDS: Carbamide Peroxide 150 DROP/15 ML BOTTLE RIGHT EAR SCH ×2 (09:31→20:04)
[2017-08-26] MEDS: Metoprolol XL (24 HR) Succ 50 MG TAB.ER.24H PO SCH (09:31)
[2017-08-26] MEDS: *HR* Digoxin 0.125 MG TABLET PO SCH (09:31)
[2017-08-26] MEDS: Isosorbide MONOnitrate (24 HR) 30 MG TAB.ER.24H PO SCH (09:31)
--- NOTE | 2017-08-26 12:05 | Internal Med Progress Note ---
Date of Encounter: 08/26/17 Time of Encounter: 11:55 - Assessment and plan (1) CHF (congestive heart failure) Current Visit: Yes Status: Chronic Assessment and plan: August 21. Continue IV Lasix with isosorbide, Lanoxin, and Toprol. Echocardiogram shows no significant change from previous study with LVEF of 60- 65% and indeterminant diastolic function reported. The E/A ratio was 1.3. There was mild aortic stenosis and aortic regurgitation. There was mild to moderate tricuspid regurgitation and mild mitral regurgitation. There was moderate pulmonary hypertension with estimated RVSP 49 mmHg. August 22. Continue present regimen August 23. Will increase Lasix and apply DANNA hose as ordered August 25. Continue present regimen. Qualifiers: Heart failure type: diastolic Heart failure chronicity: acute on chronic Qualified Code(s): I50.33 - Acute on chronic diastolic (congestive) heart failure (2) DVT (deep venous thrombosis) Current Visit: No Status: Acute Assessment and plan: August 21. Continue Coumadin and monitor PT/INR. Qualifiers: DVT location: lower extremity Affected thrombotic vein of extremity: unspecified vein of extremity Chronicity: acute Laterality: right Qualified Code(s): I82.401 - Acute embolism and thrombosis of unspecified deep veins of right lower extremity (3) Weakness Current Visit: No Status: Acute Assessment and plan: August 21. Continue therapy interventions. August 22. I told her I did not think she would do well being discharged home in 1-2 days. I feel she will need longer therapy intervention and possibly even require correction care at a SNF. August 24. Continue PT and OT interventions. Awaiting insurance approval for swing bed (4) CKD (chronic kidney disease) stage 4, GFR 15-29 ml/min Current Visit: No Status: Chronic Assessment and plan: August 21. Will monitor renal indices. (5) DM type 2 (diabetes mellitus, type 2) Current Visit: No Status: Chronic Assessment and plan: August 21. Diet controlled. Hemoglobin A1c was 5.4% on 08/03/2017. Qualifiers: Diabetes mellitus complication status: with kidney complications Diabetes mellitus complication detail: with chronic kidney disease Diabetes mellitus correction insulin use: without correction use Chronic kidney disease stage: stage 4 (severe) Qualified Code(s): E11.22 - Type 2 diabetes mellitus with diabetic chronic kidney disease; N18.4 - Chronic kidney disease, stage 4 (severe ) (6) HTN (hypertension) Current Visit: No Status: Chronic Assessment and plan: August 21. Continue Cardura, Imdur, and Toprol. August 22. Clonidine was started yesterday. Will increase dose and continue Cardura, Imdur, and Toprol. August 24. Blood pressure significantly improved. Continue present regimen Qualifiers: Hypertension type: essential hypertension Qualified Code(s): I10 - Essential (primary) hypertension (7) Hypothyroidism Current Visit: No Status: Chronic Assessment and plan: August 21. TSH was minimally elevated at 5.955. We will start Synthroid. Qualifiers: Hypothyroidism type: unspecified Qualified Code(s): E03.9 - Hypothyroidism , unspecified (8) Anemia Current Visit: No Status: Acute Assessment and plan: August 21. Anemia testing showed iron 24, transferrin saturation 8%, transferrin 208, ferritin 49, B12 398, and folate 13.4. I will give her 1 unit of blood since hemoglobin is decreased to 7.1. Will also order iron dextran infusion. August 22. Hemoglobin improved to 8.0. Continue to monitor August 24. Recheck labs in a.m. August 26. Hemoglobin improved to 8.7. Qualifiers: Anemia type: unspecified type Qualified Code(s): D64.9 - Anemia, unspecified (9) Ceruminosis Current Visit: Yes Status: Acute Assessment and plan: August 25. Will order Debrox eardrops Qualifiers: Laterality: right Qualified Code(s): H61.21 - Impacted cerumen, right ear - Subjective Interval history: August 21. She has no new complaints and states her dyspnea has slightly lessened. August 22. She has no new complaints. August 23. She has no new complaints. August 24. She has no new complaints. August 25. She complains of fullness in her ears August 26. She has no new complaints. - Constitutional Vitals: Temp Pulse Resp BP Pulse Ox 98.4 F 56 16 192/71 98 08/26/17 06:38 08/26/17 06:38 08/26/17 06:38 08/26/17 06:38 08/26/17 06:38 Exam: She is sitting in a chair at bedside resting comfortably. Her feet are on the floor and she is not wearing DANNA hose. Her affect is bright and cheerful. I reviewed her medications and lab results. Internal Medicine: Result - Labs CBC & Chem 7: 08/25/17 06:14 08/25/17 06:14 - ABG Interpretation ABG results: PT/INR, D-dimer PT 35.4 Seconds (9.4-12.1) H 08/23/17 06:39 D-Dimer 293 ng/mLFEU (0-500) 08/19/17 18:30 - VTE Documentation of Mechanical Device: Graduated compression elastic hosiery Consult Discharge Plan - Plan Referrals: Macy Reed MD [Primary Care Provider] - 1 week
[2017-08-26] MEDS: *HR* Warfarin 2 MG TABLET PO SCH (16:44)
[2017-08-27 07:03] LABS: Basophils % 0.3 %; Eosinophils # 0.2 K/mcL (0.0-0.6); Eosinophils % 2.7 %; Hematocrit 30.3 % (35.3-44.9); Hemoglobin 9.1 g/dL (11.5-15.4); Immature Granulocytes % 1.9 % (0-4); Lymphocytes # 1.1 K/mcL (0.6-4.6); Lymphocytes % 16.8 %; Mean Corpuscular Hemoglobin 30.1 pg (28.0-33.3); Mean Corpuscular Volume 100.3 fL (83.0-100.0); Mean Platelet Volume 11.4 fL (9.4-12.4); Monocytes # 0.5 K/mcL (0.0-1.3); Monocytes % 7.4 %; Neutrophils # 4.5 K/mcL (1.6-8.9); Nucleated Red Blood Cells 0.3 /100 WBC (0); Platelet Count 196 K/mcL (140-400); Red Blood Count 3.02 M/mcL (3.82-4.97); Red Cell Distribution Width 18.4 % (11.5-14.5); Segmented Neutrophils % 70.9 %
[2017-08-27 07:14] LABS: INR 2.3; Prothrombin Time 24.7 Seconds (9.4-12.1)
[2017-08-27 07:26] LABS: Calcium 8.7 mg/dL (8.6-10.3); Potassium 3.5 mEq/L (3.5-5.1)
[2017-08-27] MEDS: Furosemide 40 MG/4 ML VIAL IVP SCH ×2 (07:29→17:22)
[2017-08-27] MEDS: Isosorbide MONOnitrate (24 HR) 30 MG TAB.ER.24H PO SCH (07:29)
[2017-08-27] MEDS: Cholecalciferol (D-3) 1,000 UNIT TABLET PO SCH (07:29)
[2017-08-27] MEDS: Metoprolol XL (24 HR) Succ 50 MG TAB.ER.24H PO SCH (07:30)
[2017-08-27] MEDS: cloNIDine HCl 0.1 MG TABLET PO SCH ×2 (07:30→20:15)
[2017-08-27] MEDS: Carbamide Peroxide 150 DROP/15 ML BOTTLE RIGHT EAR SCH ×2 (07:31→20:15)
[2017-08-27] MEDS: Isosorbide MONOnitrate (24 HR) 60 MG TAB.ER.24H PO SCH (09:39)
[2017-08-27] MEDS: Metoprolol XL (24 HR) Succ 25 MG TAB.ER.24H PO SCH (09:40)
--- NOTE | 2017-08-27 16:27 | Internal Med Progress Note ---
Date of Encounter: 08/27/17 Time of Encounter: 16:20 - Assessment and plan (1) CHF (congestive heart failure) Current Visit: Yes Status: Chronic Assessment and plan: August 21. Continue IV Lasix with isosorbide, Lanoxin, and Toprol. Echocardiogram shows no significant change from previous study with LVEF of 60- 65% and indeterminant diastolic function reported. The E/A ratio was 1.3. There was mild aortic stenosis and aortic regurgitation. There was mild to moderate tricuspid regurgitation and mild mitral regurgitation. There was moderate pulmonary hypertension with estimated RVSP 49 mmHg. August 22. Continue present regimen August 23. Will increase Lasix and apply DANNA hose as ordered August 25. Continue present regimen. Qualifiers: Heart failure type: diastolic Heart failure chronicity: acute on chronic Qualified Code(s): I50.33 - Acute on chronic diastolic (congestive) heart failure (2) DVT (deep venous thrombosis) Current Visit: No Status: Acute Assessment and plan: August 21. Continue Coumadin and monitor PT/INR. Qualifiers: DVT location: lower extremity Affected thrombotic vein of extremity: unspecified vein of extremity Chronicity: acute Laterality: right Qualified Code(s): I82.401 - Acute embolism and thrombosis of unspecified deep veins of right lower extremity (3) Weakness Current Visit: No Status: Acute Assessment and plan: August 21. Continue therapy interventions. August 22. I told her I did not think she would do well being discharged home in 1-2 days. I feel she will need longer therapy intervention and possibly even require prison care at a SNF. August 24. Continue PT and OT interventions. Awaiting insurance approval for swing bed (4) CKD (chronic kidney disease) stage 4, GFR 15-29 ml/min Current Visit: No Status: Chronic Assessment and plan: August 21. Will monitor renal indices. August 27. Renal function stable. Continue present regimen (5) DM type 2 (diabetes mellitus, type 2) Current Visit: No Status: Chronic Assessment and plan: August 21. Diet controlled. Hemoglobin A1c was 5.4% on 08/03/2017. 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 Continue Cardura, Imdur, and Toprol. August 22. Clonidine was started yesterday. Will increase dose and continue Cardura, Imdur, and Toprol. August 24. Blood pressure significantly improved. Continue present regimen August 27. Blood pressure has increased. Will increase clonidine. Continue Toprol, Cardura, Imdur and Lasix Qualifiers: Hypertension type: essential hypertension Qualified Code(s): I10 - Essential (primary) hypertension (7) Hypothyroidism Current Visit: No Status: Chronic Assessment and plan: August 21. TSH was minimally elevated at 5.955. We will start Synthroid. Qualifiers: Hypothyroidism type: unspecified Qualified Code(s): E03.9 - Hypothyroidism , unspecified (8) Anemia Current Visit: No Status: Acute Assessment and plan: August 21. Anemia testing showed iron 24, transferrin saturation 8%, transferrin 208, ferritin 49, B12 398, and folate 13.4. I will give her 1 unit of blood since hemoglobin is decreased to 7.1. Will also order iron dextran infusion. August 22. Hemoglobin improved to 8.0. Continue to monitor August 24. Recheck labs in a.m. August 26. Hemoglobin improved to 8.7. August 27. Hemoglobin improved further to 9.1. Continue present management Qualifiers: Anemia type: unspecified type Qualified Code(s): D64.9 - Anemia, unspecified (9) Ceruminosis Current Visit: Yes Status: Acute Assessment and plan: August 25. Will order Debrox eardrops Qualifiers: Laterality: right Qualified Code(s): H61.21 - Impacted cerumen, right ear - Subjective Interval history: August 21. She has no new complaints and states her dyspnea has slightly lessened. August 22. She has no new complaints. August 23. She has no new complaints. August 24. She has no new complaints. August 25. She complains of fullness in her ears August 26. She has no new complaints. August 27. She has no new complaints. Approval from insurance for swing bed is pending - Constitutional Vitals: Temp Pulse Resp BP Pulse Ox 97.4 F L 51 18 168/66 95 08/27/17 15:29 08/27/17 15:29 08/27/17 15:29 08/27/17 15:29 08/27/17 15:29 Exam: She is resting comfortably a recliner chair at bedside with her feet elevated. Edema is unchanged in her legs. Her affect is bright and cheerful. I reviewed her medications and lab results. Internal Medicine: Result - Labs CBC & Chem 7: 08/27/17 06:00 08/27/17 06:00 Labs: Short CBC 08/27/17 Range/Units 06:00 WBC 6.4 (4.3-11.1) K/mcL Hgb 9.1 L (11.5-15.4) g/dL Hct 30.3 L (35.3-44.9) % Plt Count 196 (140-400) K/mcL Neutrophils # 4.5 (1.6-8.9) K/mcL BMP 08/27/17 06:00 Sodium 141 Potassium 3.5 Chloride 98 Carbon Dioxide 35 H BUN 30 H Creatinine 1.85 H Glucose 95 Calcium 8.7 - ABG Interpretation ABG results: PT/INR, D-dimer PT 24.7 Seconds (9.4-12.1) H 08/27/17 06:00 D-Dimer 293 ng/mLFEU (0-500) 08/19/17 18:30 - VTE Documentation of Mechanical Device: Graduated compression elastic hosiery Consult Discharge Plan - Plan Referrals: Macy Reed MD [Primary Care Provider] - 1 week
[2017-08-27] MEDS ORDERED: cloNIDine HCl 0.1 MG TABLET PO ONE (16:45)
[2017-08-27] MEDS: *HR* Warfarin 1 MG TABLET PO SCH (17:22)
[2017-08-28] MEDS: Cholecalciferol (D-3) 1,000 UNIT TABLET PO SCH (09:28)
[2017-08-28] MEDS: *HR* Digoxin 0.125 MG TABLET PO SCH (09:28)
[2017-08-28] MEDS: Furosemide 40 MG/4 ML VIAL IVP SCH (09:28)
[2017-08-28] MEDS: Metoprolol XL (24 HR) Succ 25 MG TAB.ER.24H PO SCH (09:28)
[2017-08-28] MEDS: cloNIDine HCl 0.1 MG TABLET PO SCH ×4 (09:28→23:34)
[2017-08-28] MEDS: Isosorbide MONOnitrate (24 HR) 60 MG TAB.ER.24H PO SCH (09:28)
[2017-08-28] MEDS: Carbamide Peroxide 150 DROP/15 ML BOTTLE RIGHT EAR SCH (09:29)
--- NOTE | 2017-08-28 14:24 | Internal Med Progress Note ---
Date of Encounter: 08/28/17 Time of Encounter: 14:15 - Assessment and plan (1) CHF (congestive heart failure) Current Visit: Yes Status: Chronic Assessment and plan: August 21. Continue IV Lasix with isosorbide, Lanoxin, and Toprol. Echocardiogram shows no significant change from previous study with LVEF of 60- 65% and indeterminant diastolic function reported. The E/A ratio was 1.3. There was mild aortic stenosis and aortic regurgitation. There was mild to moderate tricuspid regurgitation and mild mitral regurgitation. There was moderate pulmonary hypertension with estimated RVSP 49 mmHg. August 22. Continue present regimen August 23. Will increase Lasix and apply DANAN hose as ordered August 25. Continue present regimen. August 28. Will transition from IV Lasix to oral Bumex. Continue present regimen otherwise. Qualifiers: Heart failure type: diastolic Heart failure chronicity: acute on chronic Qualified Code(s): I50.33 - Acute on chronic diastolic (congestive) heart failure (2) DVT (deep venous thrombosis) Current Visit: No Status: Acute Assessment and plan: August 21. Continue Coumadin and monitor PT/INR. Qualifiers: DVT location: lower extremity Affected thrombotic vein of extremity: unspecified vein of extremity Chronicity: acute Laterality: right Qualified Code(s): I82.401 - Acute embolism and thrombosis of unspecified deep veins of right lower extremity (3) Weakness Current Visit: No Status: Acute Assessment and plan: August 21. Continue therapy interventions. August 22. I told her I did not think she would do well being discharged home in 1-2 days. I feel she will need longer therapy intervention and possibly even require retirement care at a SNF. August 24. Continue PT and OT interventions. Awaiting insurance approval for swing bed (4) CKD (chronic kidney disease) stage 4, GFR 15-29 ml/min Current Visit: No Status: Chronic Assessment and plan: August 21. Will monitor renal indices. August 27. Renal function stable. Continue present regimen (5) DM type 2 (diabetes mellitus, type 2) Current Visit: No Status: Chronic Assessment and plan: August 21. Diet controlled. Hemoglobin A1c was 5.4% on 08/03/2017. Qualifiers: Diabetes mellitus complication status: with kidney complications Diabetes mellitus complication detail: with chronic kidney disease Diabetes mellitus retirement insulin use: without retirement use Chronic kidney disease stage: stage 4 (severe) Qualified Code(s): E11.22 - Type 2 diabetes mellitus with diabetic chronic kidney disease; N18.4 - Chronic kidney disease, stage 4 (severe ) (6) HTN (hypertension) Current Visit: No Status: Chronic Assessment and plan: August 21. Continue Cardura, Imdur, and Toprol. August 22. Clonidine was started yesterday. Will increase dose and continue Cardura, Imdur, and Toprol. August 24. Blood pressure significantly improved. Continue present regimen August 27. Blood pressure has increased. Will increase clonidine. Continue Toprol, Cardura, Imdur and Lasix August 28. Blood pressure not improved. We will further increase clonidine. Qualifiers: Hypertension type: essential hypertension Qualified Code(s): I10 - Essential (primary) hypertension (7) Hypothyroidism Current Visit: No Status: Chronic Assessment and plan: August 21. TSH was minimally elevated at 5.955. We will start Synthroid. Qualifiers: Hypothyroidism type: unspecified Qualified Code(s): E03.9 - Hypothyroidism , unspecified (8) Anemia Current Visit: No Status: Acute Assessment and plan: August 21. Anemia testing showed iron 24, transferrin saturation 8%, transferrin 208, ferritin 49, B12 398, and folate 13.4. I will give her 1 unit of blood since hemoglobin is decreased to 7.1. Will also order iron dextran infusion. August 22. Hemoglobin improved to 8.0. Continue to monitor August 24. Recheck labs in a.m. August 26. Hemoglobin improved to 8.7. August 27. Hemoglobin improved further to 9.1. Continue present management Qualifiers: Anemia type: unspecified type Qualified Code(s): D64.9 - Anemia, unspecified (9) Ceruminosis Current Visit: Yes Status: Acute Assessment and plan: August 25. Will order Debrox eardrops Qualifiers: Laterality: right Qualified Code(s): H61.21 - Impacted cerumen, right ear - Subjective Interval history: August 21. She has no new complaints and states her dyspnea has slightly lessened. August 22. She has no new complaints. August 23. She has no new complaints. August 24. She has no new complaints. August 25. She complains of fullness in her ears August 26. She has no new complaints. August 27. She has no new complaints. Approval from insurance for swing bed is pending August 28. She has no new complaints and states she feels better. - Constitutional Vitals: Temp Pulse Resp BP Pulse Ox 98 F 48 18 182/62 98 08/28/17 06:29 08/28/17 06:29 08/28/17 06:29 08/28/17 06:29 08/28/17 06:29 Exam: She is resting comfortably in a chair at bedside and appears in no acute distress. Her affect is bright and cheerful. Extremities show trace to 1+ pitting edema. I reviewed her medications and past lab results. Internal Medicine: Result - Labs CBC & Chem 7: 08/27/17 06:00 08/27/17 06:00 - ABG Interpretation ABG results: PT/INR, D-dimer PT 24.7 Seconds (9.4-12.1) H 08/27/17 06:00 D-Dimer 293 ng/mLFEU (0-500) 08/19/17 18:30 - VTE Documentation of Mechanical Device: Graduated compression elastic hosiery Consult Discharge Plan - Plan Referrals: Macy Reed MD [Primary Care Provider] - 1 week
[2017-08-28] MEDS: Bumetanide 1 MG TABLET PO SCH (16:38)
[2017-08-28] MEDS: *HR* Warfarin 1 MG TABLET PO SCH (16:40)
[2017-08-29 06:26] VITALS: BP 177/63
[2017-08-29] MEDS: Isosorbide MONOnitrate (24 HR) 60 MG TAB.ER.24H PO SCH (08:07)
[2017-08-29] MEDS: Cholecalciferol (D-3) 1,000 UNIT TABLET PO SCH (08:08)
[2017-08-29] MEDS: Bumetanide 1 MG TABLET PO SCH (08:08)
[2017-08-29] MEDS: cloNIDine HCl 0.1 MG TABLET PO SCH (08:08)
[2017-08-29] MEDS: Metoprolol XL (24 HR) Succ 25 MG TAB.ER.24H PO SCH (08:09)
--- NOTE | 2017-08-29 09:43 | Internal Med Progress Note ---
Date of Encounter: 08/29/17 Time of Encounter: 09:35 - Assessment and plan (1) CHF (congestive heart failure) Current Visit: Yes Status: Chronic Assessment and plan: August 21. Continue IV Lasix with isosorbide, Lanoxin, and Toprol. Echocardiogram shows no significant change from previous study with LVEF of 60- 65% and indeterminant diastolic function reported. The E/A ratio was 1.3. There was mild aortic stenosis and aortic regurgitation. There was mild to moderate tricuspid regurgitation and mild mitral regurgitation. There was moderate pulmonary hypertension with estimated RVSP 49 mmHg. August 22. Continue present regimen August 23. Will increase Lasix and apply DANNA hose as ordered August 25. Continue present regimen. August 28. Will transition from IV Lasix to oral Bumex. Continue present regimen otherwise. Qualifiers: Heart failure type: diastolic Heart failure chronicity: acute on chronic Qualified Code(s): I50.33 - Acute on chronic diastolic (congestive) heart failure (2) DVT (deep venous thrombosis) Current Visit: No Status: Acute Assessment and plan: August 21. Continue Coumadin and monitor PT/INR. August 29. Recheck labs in a.m. Qualifiers: DVT location: lower extremity Affected thrombotic vein of extremity: unspecified vein of extremity Chronicity: acute Laterality: right Qualified Code(s): I82.401 - Acute embolism and thrombosis of unspecified deep veins of right lower extremity (3) Weakness Current Visit: No Status: Acute Assessment and plan: August 21. Continue therapy interventions. August 22. I told her I did not think she would do well being discharged home in 1-2 days. I feel she will need longer therapy intervention and possibly even require fdc care at a SNF. August 24. Continue PT and OT interventions. Awaiting insurance approval for swing bed (4) CKD (chronic kidney disease) stage 4, GFR 15-29 ml/min Current Visit: No Status: Chronic Assessment and plan: August 21. Will monitor renal indices. August 27. Renal function stable. Continue present regimen August 29. Recheck labs in a.m. (5) DM type 2 (diabetes mellitus, type 2) Current Visit: No Status: Chronic Assessment and plan: August 21. Diet controlled. Hemoglobin A1c was 5.4% on 08/03/2017. 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 Continue Cardura, Imdur, and Toprol. August 22. Clonidine was started yesterday. Will increase dose and continue Cardura, Imdur, and Toprol. August 24. Blood pressure significantly improved. Continue present regimen August 27. Blood pressure has increased. Will increase clonidine. Continue Toprol, Cardura, Imdur and Lasix August 28. Blood pressure not improved. We will further increase clonidine. Qualifiers: Hypertension type: essential hypertension Qualified Code(s): I10 - Essential (primary) hypertension (7) Hypothyroidism Current Visit: No Status: Chronic Assessment and plan: August 21. TSH was minimally elevated at 5.955. We will start Synthroid. Qualifiers: Hypothyroidism type: unspecified Qualified Code(s): E03.9 - Hypothyroidism , unspecified (8) Anemia Current Visit: No Status: Acute Assessment and plan: August 21. Anemia testing showed iron 24, transferrin saturation 8%, transferrin 208, ferritin 49, B12 398, and folate 13.4. I will give her 1 unit of blood since hemoglobin is decreased to 7.1. Will also order iron dextran infusion. August 22. Hemoglobin improved to 8.0. Continue to monitor August 24. Recheck labs in a.m. August 26. Hemoglobin improved to 8.7. August 27. Hemoglobin improved further to 9.1. Continue present management Qualifiers: Anemia type: unspecified type Qualified Code(s): D64.9 - Anemia, unspecified (9) Ceruminosis Current Visit: Yes Status: Acute Assessment and plan: August 25. Will order Debrox eardrops August 29. Debrox discontinued yesterday. Qualifiers: Laterality: right Qualified Code(s): H61.21 - Impacted cerumen, right ear - Subjective Interval history: August 21. She has no new complaints and states her dyspnea has slightly lessened. August 22. She has no new complaints. August 23. She has no new complaints. August 24. She has no new complaints. August 25. She complains of fullness in her ears August 26. She has no new complaints. August 27. She has no new complaints. Approval from insurance for swing bed is pending August 28. She has no new complaints and states she feels better. August 29. She has no new complaints. - Constitutional Vitals: Temp Pulse Resp BP Pulse Ox 97.4 F L 52 18 177/63 95 08/29/17 06:20 08/29/17 06:20 08/29/17 06:20 08/29/17 06:20 08/29/17 06:20 Exam: She is sitting in a recliner chair at bedside. Her feet are on the floor. She is not wearing DANNA hose. Her heart is regular with occasional ectopic beat. She is not dyspneic. I reviewed her medications and lab results. Internal Medicine: Result - Labs CBC & Chem 7: 08/27/17 06:00 08/27/17 06:00 - ABG Interpretation ABG results: PT/INR, D-dimer PT 24.7 Seconds (9.4-12.1) H 08/27/17 06:00 D-Dimer 293 ng/mLFEU (0-500) 08/19/17 18:30 - VTE Documentation of Mechanical Device: Graduated compression elastic hosiery Consult Discharge Plan - Plan Referrals: Macy Reed MD [Primary Care Provider] - 1 week
--- NOTE | 2017-08-29 13:19 | Discharge Summary ---
Orders not resulted at time of discharge: Pending orders 08/30/17 04:00 B-Type Natriuretic Peptide AM 0400 Basic Metabolic Panel AM 0400 Complete Blood Count [HEME] AM 0400 Magnesium AM 0400 Prothrombin Time INR [COAG] AM 0400 Date of Encounter: 08/29/17 Time of Encounter: 09:35 - Discharge Diagnosis (1) CHF (congestive heart failure) Priority: Primary Status: Chronic Qualifiers: Heart failure type: diastolic Heart failure chronicity: acute on chronic Qualified Code(s): I50.33 - Acute on chronic diastolic (congestive) heart failure (2) DVT (deep venous thrombosis) Priority: Secondary Status: Acute Qualifiers: DVT location: lower extremity Affected thrombotic vein of extremity: unspecified vein of extremity Chronicity: acute Laterality: right Qualified Code(s): I82.401 - Acute embolism and thrombosis of unspecified deep veins of right lower extremity (3) Weakness Priority: Secondary Status: Acute (4) CKD (chronic kidney disease) stage 4, GFR 15-29 ml/min Priority: Secondary Status: Chronic (5) DM type 2 (diabetes mellitus, type 2) Priority: Secondary Status: Chronic Qualifiers: Diabetes mellitus complication status: with kidney complications Diabetes mellitus complication detail: with chronic kidney disease Diabetes mellitus assisted insulin use: without assisted use Chronic kidney disease stage: stage 4 (severe) Qualified Code(s): E11.22 - Type 2 diabetes mellitus with diabetic chronic kidney disease; N18.4 - Chronic kidney disease, stage 4 (severe ) (6) HTN (hypertension) Priority: Secondary Status: Chronic Qualifiers: Hypertension type: essential hypertension Qualified Code(s): I10 - Essential (primary) hypertension (7) Hypothyroidism Priority: Secondary Status: Chronic Qualifiers: Hypothyroidism type: unspecified Qualified Code(s): E03.9 - Hypothyroidism , unspecified (8) Anemia Priority: Secondary Status: Acute Qualifiers: Anemia type: unspecified type Qualified Code(s): D64.9 - Anemia, unspecified (9) Ceruminosis Priority: Secondary Status: Acute Qualifiers: Laterality: right Qualified Code(s): H61.21 - Impacted cerumen, right ear Hospital course: Ms. Allison is a 82 year old female who came to the emergency room stating she had worsening dyspnea over the preceding 3 days. She had been discharged from [facility] on August 16 after admission there from [facility] swing bed 07/31/2017. She reports orthopnea and dyspnea on exertion and occasionally at rest over the next few days. She came to emergency room and was evaluated and was felt to have exacerbation of heart failure. She was admitted to [facility] floor for ongoing care needs. Initial orders were written by the emergency room physician. I saw her on August 20 and performed a history and physical. She was given IV Lasix. Isosorbide dose was increased. Lanoxin and Toprol were continued. An echocardiogram was done to follow-up on valvular abnormality seen on February 2017 echocardiogram. Echocardiogram showed LVEF of 60-65% with mild aortic stenosis and mild mitral regurgitation. There was [id number] tricuspid regurgitation and estimated RVSP elevated at 49 mmHg. The interventricular septum and posterior wall thickness measurements were elevated at 1.20 cm. E/A ratio was 1.3. She had good clinical response to her medical regimen. Edema lessened and dyspnea improved. She will continue the regimen in swing bed. She had physical therapy and occupational therapy evaluations with ongoing intervention. Insurance initially denied request for swing bed/SNF placement. An appeal was made and word was received on August 29 that she had been approved for discharge to swing bed. She will continue to receive therapy in swing bed. - Time Spent with Patient Total time spent providing and/or coordinating discharge services: - Discharge Medications Home Medications: Allopurinol 300 mg PO DAILY 03/03/17 [History] Cranberry Conc/C/Bacill Coag [Cranberry Tablet] 1 each PO DAILY 03/03/17 [ History] Acetaminophen [Tylenol] 500 mg PO Q6HR tab 03/10/17 [Rx] Atorvastatin [Lipitor] 80 mg PO DAILY tab 03/10/17 [Rx] Cholecalciferol (D-3) [Vitamin D] 1,000 unit PO DAILY tab 03/10/17 [Rx] Digoxin [Lanoxin] 0.125 mg PO QOD #15 tab 03/24/17 [Rx] Doxazosin [Cardura] 8 mg PO HS #60 tablet 03/24/17 [Rx] MOM Conc [MILK OF MAGNESIA conc] 10 ml PO Q48H ud.liq 07/14/17 [Rx] Methyl Salicylate/Menthol [Bengay] 1 appl TP BID PRN tube 07/14/17 [Rx] Gabapentin [Neurontin] 100 mg PO BID capsule 07/31/17 [Rx] HYDROcodone/Acet 5/325 mg [[place] 5-325 mg] 1 tab PO Q4HR PRN #60 tablet [Rx] Bumetanide [Bumex] 2 mg PO BIDDIURETIC tablet 08/29/17 [Rx] Isosorbide MONOnitrate (24 HR) [Imdur] 60 mg PO DAILY tab.er.24h 08/29/17 [Rx] Levothyroxine [Synthroid] 100 mcg PO DAILY@0630 tablet 08/29/17 [Rx] Metoprolol XL (24 HR) Succ [Toprol Xl] 25 mg PO DAILY tab.er.24h 08/29/17 [Rx] Omeprazole [PriLOSEC] 20 mg PO DAILY@0630 PRN capsule.dr 08/29/17 [Rx] Warfarin [Coumadin] 1 mg PO DAILY@1800 tablet 08/29/17 [Rx] cloNIDine HCl [CloNIDine HCl] 0.3 mg PO Q8HR tablet 08/29/17 [Rx] Allergies/Adverse Reactions: 3 Allergy/AdvReac Type Severity Reaction Status Date / Time ibuprofen [From Motrin IB] AdvReac Hives Verified 03/02/17 09:24 Sulfa (Sulfonamide AdvReac Hives Verified 03/02/17 09:24 Antibiotics) Date of admission: 08/20/17 15:29 Primary care physician: Macy Reed - Constitutional Vitals: Temp Pulse Resp BP Pulse Ox 97.4 F L 52 18 177/63 95 08/29/17 06:20 08/29/17 06:20 08/29/17 06:20 08/29/17 06:20 08/29/17 06:20 - Patient Status Disposition: Transfer Hospital Swing Bed Condition: Fair Functional capacity at discharge: uses cane/walker Overall status at discharge: patient is progressing back to baseline - Discharge Instructions - Diet and Activity Activity: as per physical therapy Diet: diabetic diet - VTE Documentation of Mechanical Device: Graduated compression elastic hosiery
== END 2017-08-29 13:47 | disposition other institution (70) | DRG 291 ==
LOC: EMEROOPIK 17:21 → INPPIK 17:21
PROVIDERS: ADMIT Internal Medicine; ATTEND Internal Medicine

== ENCOUNTER 2017-08-29 11:19 | Inpatient (IN) ==
[2017-08-29] MEDS ORDERED: Methyl Salicylate/Menthol 28 GM TUBE TP PRN (14:06)
[2017-08-29] MEDS ORDERED: MOM Conc 10 ML UD.LIQ PO PRN (14:13)
[2017-08-29] MEDS ORDERED: MOM Conc 10 ML UD.LIQ PO SCH (14:15)
[2017-08-29] MEDS: *HR* Warfarin 1 MG TABLET PO SCH (16:35)
[2017-08-29] MEDS: cloNIDine HCl 0.1 MG TABLET PO SCH ×2 (16:35→23:40)
[2017-08-29] MEDS: Bumetanide 1 MG TABLET PO SCH (16:35)
[2017-08-29] MEDS ORDERED: *HR* HYDROcodone/Acet 5/325 mg TABLET PO PRN (17:19)
[2017-08-29] MEDS: Gabapentin 100 MG CAPSULE PO SCH (19:57)
[2017-08-30 05:45] LABS: INR 1.9; Prothrombin Time 20.3 Seconds (9.4-12.1)
[2017-08-30 05:47] LABS: Basophils % 0.4 %; Eosinophils # 0.1 K/mcL (0.0-0.6); Eosinophils % 1.7 %; Hematocrit 31.2 % (35.3-44.9); Hemoglobin 9.7 g/dL (11.5-15.4); Immature Granulocytes % 1.9 % (0-4); Lymphocytes % 12.7 %; Mean Corpuscular HGB Conc 31.1 g/dL (31.6-35.5); Mean Corpuscular Hemoglobin 30.8 pg (28.0-33.3); Mean Platelet Volume 11.6 fL (9.4-12.4); Monocytes # 0.6 K/mcL (0.0-1.3); Monocytes % 7.6 %; Neutrophils # 5.7 K/mcL (1.6-8.9); Platelet Count 225 K/mcL (140-400); Red Blood Count 3.15 M/mcL (3.82-4.97); Red Cell Distribution Width 18.3 % (11.5-14.5); Segmented Neutrophils % 75.7 %
[2017-08-30 05:48] LABS: Activated Partial Thrombo Time 34.4 Seconds (26.0-36.0)
[2017-08-30] MEDS: Metoprolol XL (24 HR) Succ 25 MG TAB.ER.24H PO SCH (08:06)
[2017-08-30] MEDS: Bumetanide 1 MG TABLET PO SCH ×2 (08:06→16:51)
[2017-08-30] MEDS: Isosorbide MONOnitrate (24 HR) 60 MG TAB.ER.24H PO SCH (08:06)
[2017-08-30] MEDS: Cholecalciferol (D-3) 1,000 UNIT TABLET PO SCH (08:06)
[2017-08-30] MEDS: Gabapentin 100 MG CAPSULE PO SCH ×2 (08:06→20:56)
[2017-08-30] MEDS: cloNIDine HCl 0.1 MG TABLET PO SCH ×2 (08:06→16:51)
[2017-08-30] MEDS: *HR* Digoxin 0.125 MG TABLET PO SCH (08:06)
[2017-08-30] MEDS: *HR* Warfarin 1 MG TABLET PO SCH (16:51)
[2017-08-31] MEDS: cloNIDine HCl 0.1 MG TABLET PO SCH ×4 (01:10→18:02)
[2017-08-31] MEDS: Isosorbide MONOnitrate (24 HR) 60 MG TAB.ER.24H PO SCH (10:22)
[2017-08-31] MEDS: Metoprolol XL (24 HR) Succ 25 MG TAB.ER.24H PO SCH (10:22)
[2017-08-31] MEDS: Cholecalciferol (D-3) 1,000 UNIT TABLET PO SCH (10:22)
[2017-08-31] MEDS: Gabapentin 100 MG CAPSULE PO SCH ×2 (10:22→22:38)
[2017-08-31] MEDS: Bumetanide 1 MG TABLET PO SCH ×2 (10:22→17:07)
[2017-08-31] MEDS: *HR* Warfarin 1 MG TABLET PO SCH (17:07)
--- NOTE | 2017-08-31 17:31 | Internal Med Progress Note ---
Date of Encounter: 08/31/17 Time of Encounter: 17:20 - Assessment and plan (1) CHF (congestive heart failure) Current Visit: No Status: Chronic Assessment and plan: Continue Bumex, Lanoxin, Imdur, and Toprol. Qualifiers: Heart failure type: diastolic Heart failure chronicity: acute on chronic Qualified Code(s): I50.33 - Acute on chronic diastolic (congestive) heart failure (2) Weakness Current Visit: No Status: Acute Assessment and plan: Continue therapy interventions. (3) CKD (chronic kidney disease) stage 4, GFR 15-29 ml/min Current Visit: No Status: Chronic Assessment and plan: Will monitor renal indices periodically. (4) HTN (hypertension) Current Visit: No Status: Chronic Assessment and plan: Continue Cardura and Toprol. Will increase clonidine since pressure is suboptimally controlled Qualifiers: Hypertension type: essential hypertension Qualified Code(s): I10 - Essential (primary) hypertension (5) DVT (deep venous thrombosis) Current Visit: No Status: Acute Assessment and plan: Continue Coumadin Qualifiers: DVT location: lower extremity Affected thrombotic vein of extremity: unspecified vein of extremity Chronicity: acute Laterality: right Qualified Code(s): I82.401 - Acute embolism and thrombosis of unspecified deep veins of right lower extremity (6) Ceruminosis Current Visit: No Status: Acute Assessment and plan: Will order ear irrigation Qualifiers: Laterality: right Qualified Code(s): H61.21 - Impacted cerumen, right ear - Subjective Interval history: August 31. She was hospitalized in acute-care August 20 after presenting with dyspnea. She was felt to have exacerbation of heart failure. Her medications were adjusted. She had therapy intervention and had clinical improvement but it was felt she would benefit from swing bed stay for ongoing care needs. She has no new complaints today. - Constitutional Vitals: Temp Pulse Resp BP Pulse Ox 98.1 F 69 17 191/76 97 08/31/17 06:17 08/31/17 06:17 08/31/17 06:17 08/31/17 06:17 08/31/17 06:17 Exam: She is resting comfortably in a chair at bedside. Her feet are elevated in the recliner and she is wearing DANNA hose. There is 0-trace edema of the dorsum of the feet and lower legs bilaterally. I reviewed her medications and lab results. Internal Medicine: Result - Labs CBC & Chem 7: 08/30/17 05:20 - ABG Interpretation ABG results: PT/INR, D-dimer PT 20.3 Seconds (9.4-12.1) H 08/30/17 05:20 - VTE Documentation of Mechanical Device: Graduated compression elastic hosiery Consult Discharge Plan - Plan Referrals: Macy Reed MD [Primary Care Provider] - 1 week
[2017-09-01] MEDS: cloNIDine HCl 0.1 MG TABLET PO SCH ×3 (01:36→17:47)
[2017-09-01] MEDS: Gabapentin 100 MG CAPSULE PO SCH ×2 (10:00→22:46)
[2017-09-01] MEDS: Metoprolol XL (24 HR) Succ 25 MG TAB.ER.24H PO SCH (10:00)
[2017-09-01] MEDS: Cholecalciferol (D-3) 1,000 UNIT TABLET PO SCH (10:00)
[2017-09-01] MEDS: Bumetanide 1 MG TABLET PO SCH ×2 (10:00→17:47)
[2017-09-01] MEDS: Isosorbide MONOnitrate (24 HR) 60 MG TAB.ER.24H PO SCH (10:01)
[2017-09-01] MEDS: *HR* Digoxin 0.125 MG TABLET PO SCH (10:01)
[2017-09-01] MEDS: *HR* Warfarin 1 MG TABLET PO SCH (17:47)
[2017-09-02] MEDS: cloNIDine HCl 0.1 MG TABLET PO SCH ×3 (01:45→17:44)
[2017-09-02] MEDS: Bumetanide 1 MG TABLET PO SCH ×2 (10:04→17:38)
[2017-09-02] MEDS: Metoprolol XL (24 HR) Succ 25 MG TAB.ER.24H PO SCH (10:05)
[2017-09-02] MEDS: Isosorbide MONOnitrate (24 HR) 60 MG TAB.ER.24H PO SCH (10:05)
[2017-09-02] MEDS: Gabapentin 100 MG CAPSULE PO SCH ×2 (10:05→20:23)
[2017-09-02] MEDS: Cholecalciferol (D-3) 1,000 UNIT TABLET PO SCH (10:05)
--- NOTE | 2017-09-02 16:52 | Internal Med Progress Note ---
Date of Encounter: 09/02/17 Time of Encounter: 16:40 - Assessment and plan (1) CHF (congestive heart failure) Current Visit: No Status: Chronic Assessment and plan: August 31. Continue Bumex, Lanoxin, Imdur, and Toprol. September 02. Continue present regimen above. Qualifiers: Heart failure type: diastolic Heart failure chronicity: acute on chronic Qualified Code(s): I50.33 - Acute on chronic diastolic (congestive) heart failure (2) Weakness Current Visit: No Status: Acute Assessment and plan: August 31. Continue therapy interventions. (3) CKD (chronic kidney disease) stage 4, GFR 15-29 ml/min Current Visit: No Status: Chronic Assessment and plan: August 31. Will monitor renal indices periodically. (4) HTN (hypertension) Current Visit: No Status: Chronic Assessment and plan: August 31. Continue Cardura and Toprol. Will increase clonidine since pressure is suboptimally controlled September 02. Will increase clonidine further since blood pressure is still suboptimally controlled Qualifiers: Hypertension type: essential hypertension Qualified Code(s): I10 - Essential (primary) hypertension (5) DVT (deep venous thrombosis) Current Visit: No Status: Acute Assessment and plan: August 31. Continue Coumadin Qualifiers: DVT location: lower extremity Affected thrombotic vein of extremity: unspecified vein of extremity Chronicity: acute Laterality: right Qualified Code(s): I82.401 - Acute embolism and thrombosis of unspecified deep veins of right lower extremity (6) Ceruminosis Current Visit: No Status: Acute Assessment and plan: August 31. Will order ear irrigation Qualifiers: Laterality: right Qualified Code(s): H61.21 - Impacted cerumen, right ear - Subjective Interval history: August 31. She was hospitalized in acute-care August 20 after presenting with dyspnea. She was felt to have exacerbation of heart failure. Her medications were adjusted. She had therapy intervention and had clinical improvement but it was felt she would benefit from swing bed stay for ongoing care needs. She has no new complaints today. September 02. She has no new complaints. - Constitutional Vitals: Temp Pulse Resp BP Pulse Ox 98.4 F 51 18 168/59 97 09/02/17 07:33 09/02/17 07:33 09/02/17 07:33 09/02/17 07:33 09/02/17 07:33 Exam: She is resting comfortably in a chair at bedside. Her feet are elevated. She is wearing DANNA hose. I reviewed her medications and lab results. Internal Medicine: Result - Labs CBC & Chem 7: 08/30/17 05:20 - ABG Interpretation ABG results: PT/INR, D-dimer PT 20.3 Seconds (9.4-12.1) H 08/30/17 05:20 - VTE Documentation of Mechanical Device: Graduated compression elastic hosiery Consult Discharge Plan - Plan Referrals: Macy Reed MD [Primary Care Provider] - 1 week
[2017-09-02] MEDS: *HR* Warfarin 1 MG TABLET PO SCH (17:38)
[2017-09-03] MEDS: cloNIDine HCl 0.1 MG TABLET PO SCH ×3 (02:34→12:40)
[2017-09-03 06:20] VITALS: BP 154/59
[2017-09-03 06:48] LABS: Basophils % 0.5 %; Eosinophils # 0.2 K/mcL (0.0-0.6); Eosinophils % 2.7 %; Hemoglobin 9.4 g/dL (11.5-15.4); Immature Granulocytes % 1.6 % (0-4); Lymphocytes % 16.6 %; Mean Corpuscular HGB Conc 31.3 g/dL (31.6-35.5); Mean Corpuscular Hemoglobin 30.7 pg (28.0-33.3); Monocytes # 0.5 K/mcL (0.0-1.3); Monocytes % 7.7 %; Neutrophils # 4.4 K/mcL (1.6-8.9); Platelet Count 210 K/mcL (140-400); Red Blood Count 3.06 M/mcL (3.82-4.97); Red Cell Distribution Width 17.5 % (11.5-14.5); Segmented Neutrophils % 70.9 %
[2017-09-03 06:58] LABS: INR 1.7; Prothrombin Time 18.6 Seconds (9.4-12.1)
[2017-09-03 07:07] LABS: Calcium 9.1 mg/dL (8.6-10.3); Magnesium 1.5 mg/dL (1.6-2.6); Potassium 3.4 mEq/L (3.5-5.1)
[2017-09-03] MEDS: Cholecalciferol (D-3) 1,000 UNIT TABLET PO SCH (08:37)
[2017-09-03] MEDS: Metoprolol XL (24 HR) Succ 25 MG TAB.ER.24H PO SCH (08:37)
[2017-09-03] MEDS: Bumetanide 1 MG TABLET PO SCH (08:37)
[2017-09-03] MEDS: *HR* Digoxin 0.125 MG TABLET PO SCH (08:37)
[2017-09-03] MEDS: Gabapentin 100 MG CAPSULE PO SCH (08:37)
[2017-09-03] MEDS: Isosorbide MONOnitrate (24 HR) 60 MG TAB.ER.24H PO SCH (08:37)
--- NOTE | 2017-09-03 14:13 | Discharge Summary ---
Date of Encounter: 09/03/17 Time of Encounter: 11:45 - Discharge Diagnosis (1) CHF (congestive heart failure) Priority: Primary Status: Chronic Qualifiers: Heart failure type: diastolic Heart failure chronicity: acute on chronic Qualified Code(s): I50.33 - Acute on chronic diastolic (congestive) heart failure (2) Weakness Priority: Secondary Status: Acute (3) CKD (chronic kidney disease) stage 4, GFR 15-29 ml/min Priority: Secondary Status: Chronic (4) HTN (hypertension) Priority: Secondary Status: Chronic Qualifiers: Hypertension type: essential hypertension Qualified Code(s): I10 - Essential (primary) hypertension (5) DVT (deep venous thrombosis) Priority: Secondary Status: Acute Qualifiers: DVT location: lower extremity Affected thrombotic vein of extremity: unspecified vein of extremity Chronicity: acute Laterality: right Qualified Code(s): I82.401 - Acute embolism and thrombosis of unspecified deep veins of right lower extremity (6) Ceruminosis Priority: Secondary Status: Acute Qualifiers: Laterality: right Qualified Code(s): H61.21 - Impacted cerumen, right ear Hospital course: Ms. Allison is a 82 year old female who was hospitalized in acute-care August 20- after presenting with dyspnea. She was felt to have exacerbation of heart failure. Her medications were adjusted. She had therapy intervention and had clinical improvement but it was felt she would benefit from swing bed stay for ongoing care needs. She progressed satisfactorily in swing bed. It was felt she was not achieving adequate level of improvement however to be discharged home. Arrangements were complete on September 03 for her to be discharged to [facility] for ongoing care needs. Clonidine was increased and she was continued on Cardura and Toprol for blood pressure management. She received Debrox with irrigation for right ear canal ceruminosis with good results. Coumadin was maintained for history of right leg DVT. Pro times will be monitored at the retirement. I will follow with her at [facility]. - Time Spent with Patient Total time spent providing and/or coordinating discharge services: - Discharge Medications Prescriptions: HYDROcodone/Acet 5/325 mg [[place] 5-325 mg] 1 tab PO Q4HR PRN 14 Days #60 tablet PRN Reason: Moderate Pain Home Medications: Allopurinol 300 mg PO DAILY 03/03/17 [History] Cranberry Conc/C/Bacill Coag [Cranberry Tablet] 1 each PO DAILY 03/03/17 [ History] Atorvastatin [Lipitor] 80 mg PO DAILY tab 03/10/17 [Rx] Cholecalciferol (D-3) [Vitamin D] 1,000 unit PO DAILY tab 03/10/17 [Rx] Digoxin [Lanoxin] 0.125 mg PO QOD #15 tab 03/24/17 [Rx] Doxazosin [Cardura] 8 mg PO HS #60 tablet 03/24/17 [Rx] MOM Conc [MILK OF MAGNESIA conc] 10 ml PO Q48H ud.liq 07/14/17 [Rx] Methyl Salicylate/Menthol [Bengay] 1 appl TP BID PRN tube 07/14/17 [Rx] Gabapentin [Neurontin] 100 mg PO BID capsule 07/31/17 [Rx] Acetaminophen [Tylenol] 500 mg PO Q6HR PRN 08/29/17 [History] Bumetanide [Bumex] 2 mg PO BIDDIURETIC tablet 08/29/17 [Rx] Isosorbide MONOnitrate (24 HR) [Imdur] 60 mg PO DAILY tab.er.24h 08/29/17 [Rx] Levothyroxine [Synthroid] 100 mcg PO DAILY@0630 tablet 08/29/17 [Rx] Metoprolol XL (24 HR) Succ [Toprol Xl] 25 mg PO DAILY tab.er.24h 08/29/17 [Rx] Omeprazole [PriLOSEC] 20 mg PO DAILY@0630 PRN capsule. 08/29/17 [Rx] HYDROcodone/Acet 5/325 mg [[place] 5-325 mg] 1 tab PO Q4HR PRN 14 Days #60 tablet 09/03/17 [Rx] Warfarin [Coumadin] 1.5 mg PO DAILY@1800 #0 tablet 09/03/17 [Rx] cloNIDine HCl [CloNIDine HCl] 0.6 mg PO Q8HR tablet 09/03/17 [Rx] Allergies/Adverse Reactions: 3 Allergy/AdvReac Type Severity Reaction Status Date / Time ibuprofen [From Motrin IB] AdvReac Hives Verified 03/02/17 09:24 Sulfa (Sulfonamide AdvReac Hives Verified 03/02/17 09:24 Antibiotics) Date of admission: 08/29/17 14:00 Primary care physician: Macy Reed Consults: 08/29/17 14:04 Consult to Occupational Therapy [CONS] Routine Comment: Eval, Develop, and Implement Reason for Consult: Eval, Develop, and Implement - weakness Consult to Physical Therapy [CONS] Routine Comment: Eval, Develop, and Implement Reason for Consult: Eval, Develop, and Implement - weakness Consult to Physician Non Invasive Cardiologist [CONS] Routine Reason for SW Consult: D/C planning 08/29/17 15:49 Consult to Physician Non Invasive Cardiologist [CONS] Routine Reason for SW Consult: discharge planning - Constitutional Vitals: Temp Pulse Resp BP Pulse Ox 97.9 F 52 16 154/59 97 09/03/17 06:17 09/03/17 06:17 09/03/17 06:17 09/03/17 06:17 09/03/17 06:17 - Patient Status Disposition: Transfer SNF Functional capacity at discharge: uses cane/walker - Discharge Instructions - Diet and Activity Activity: as per physical therapy Diet: low fat, low cholesterol - VTE Documentation of Mechanical Device: Graduated compression elastic hosiery
--- NOTE | 2017-09-03 14:18 | Physician Discharge Referral ---
ExtendedCare Referral Info Transfer To: [facility] Provider in Charge: Isra Provider in Charge after Transfer: PCP Nathanael) Institutional Level of Care: Skilled - Diagnosis (1) CHF (congestive heart failure) Priority: Primary Status: Chronic (2) Weakness Priority: Secondary Status: Acute (3) CKD (chronic kidney disease) stage 4, GFR 15-29 ml/min Priority: Secondary Status: Chronic (4) HTN (hypertension) Priority: Secondary Status: Chronic (5) DVT (deep venous thrombosis) Priority: Secondary Status: Acute (6) Ceruminosis Priority: Secondary Status: Acute Prognosis: Fair Aware of Diagnosis: Patient, Family Aware of Prognosis: Patient, Family - Transfer Medications Prescriptions: HYDROcodone/Acet 5/325 mg [[place] 5-325 mg] 1 tab PO Q4HR PRN 14 Days #60 tablet PRN Reason: Moderate Pain Home Medications: Allopurinol 300 mg PO DAILY 03/03/17 [History] Cranberry Conc/C/Bacill Coag [Cranberry Tablet] 1 each PO DAILY 03/03/17 [ History] Atorvastatin [Lipitor] 80 mg PO DAILY tab 03/10/17 [Rx] Cholecalciferol (D-3) [Vitamin D] 1,000 unit PO DAILY tab 03/10/17 [Rx] Digoxin [Lanoxin] 0.125 mg PO QOD #15 tab 03/24/17 [Rx] Doxazosin [Cardura] 8 mg PO HS #60 tablet 03/24/17 [Rx] MOM Conc [MILK OF MAGNESIA conc] 10 ml PO Q48H ud.liq 07/14/17 [Rx] Methyl Salicylate/Menthol [Bengay] 1 appl TP BID PRN tube 07/14/17 [Rx] Gabapentin [Neurontin] 100 mg PO BID capsule 07/31/17 [Rx] Acetaminophen [Tylenol] 500 mg PO Q6HR PRN 08/29/17 [History] Bumetanide [Bumex] 2 mg PO BIDDIURETIC tablet 08/29/17 [Rx] Isosorbide MONOnitrate (24 HR) [Imdur] 60 mg PO DAILY tab.er.24h 08/29/17 [Rx] Levothyroxine [Synthroid] 100 mcg PO DAILY@0630 tablet 08/29/17 [Rx] Metoprolol XL (24 HR) Succ [Toprol Xl] 25 mg PO DAILY tab.er.24h 08/29/17 [Rx] Omeprazole [PriLOSEC] 20 mg PO DAILY@0630 PRN capsule.dr 08/29/17 [Rx] HYDROcodone/Acet 5/325 mg [[place] 5-325 mg] 1 tab PO Q4HR PRN 14 Days #60 tablet 09/03/17 [Rx] Warfarin [Coumadin] 1.5 mg PO DAILY@1800 #0 tablet 09/03/17 [Rx] cloNIDine HCl [CloNIDine HCl] 0.6 mg PO Q8HR tablet 09/03/17 [Rx] Allergies/Adverse Reactions: 3 Allergy/AdvReac Type Severity Reaction Status Date / Time ibuprofen [From Motrin IB] AdvReac Hives Verified 03/02/17 09:24 Sulfa (Sulfonamide AdvReac Hives Verified 03/02/17 09:24 Antibiotics) - Respiratory Orders Oxygen / L per min (2 L/m by nasal cannula when necessary to keep sat greater than 90%) Smoking Cessation: Smoking cessation has been advised. For more information, call the [place] Tobacco Quit Line at 7-724-EXQJ-NOW. - Mobility Orders Ambulate - Rehabiliation Orders Rehab Potential: Fair Rehab Orders: Evaluation for Physical Therapy, Evaluation for Occupational Therapy - Diet Orders No Concentrated Sweets CERTIFICATION: I certify that the transfer of the above named patient to an Extended Care Facility is necessary for the continuing treatment of the diagnosis listed. The above information is true and accurate reflection of patient's current condition. Confidential - Redisclosure prohibited without a patient's written consent.
== END 2017-09-03 16:08 | DRG 945 ==
LOC: INPPIK 14:00
PROVIDERS: ADMIT Internal Medicine; ATTEND Internal Medicine